=== PATIENT | female | born 2005 | race Caucasian/White ===

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

== ENCOUNTER 2024-07-07 04:07 | Inpatient (IN) | payer OTHER ==
--- NOTE | 2024-07-07 04:12 | ED ---
Overdose HPI - General Stated Complaint: Overdose Time Seen by Provider: 07/07/24 04:11 Source: RN notes reviewed, old records reviewed Mode of arrival: EMS Limitations: altered mental status, physical limitation - History of Present Illness Initial Comments: This is a 19-year-old female to ER for overdose. Underlying history of seizures unknown overdose suicide attempt. Patient is unable to provide history Patient is brought in by EMS who states patient took overdose on a medication called lacosamide this is a medication that she is on for seizures patient is on multiple seizure medications with long standing history of seizures and ER visits for seizures Patient recently broke up with boyfriend and has been suicidal going to increase counseling for about a month MD Complaint: intentional overdose -: hour(s) Intent: suicide attempt Context: Intentional Overdose: relationship problems Context: Accidental Overdose: wanted to get high Associated Symptoms: depression Treatments Prior to Arrival: none - Related Data Home Medications Medication Instructions Recorded Confirmed Lacosamide 200 mg PO BID 05/19/23 07/07/24 Cenobamate [Xcopri] See Taper PO DIRECTED 07/07/24 07/07/24 diazePAM [Valtoco] 10 mg NASAL DIRECTED PRN 07/07/24 07/07/24 Allergies Allergy/AdvReac Type Severity Reaction Status Date / Time cat dander Allergy Rash/Hives Verified 07/07/24 07:54 chocolate flavor Allergy Rash/Hives Verified 07/07/24 07:54 dog dander Allergy Rash/Hives Verified 07/07/24 07:54 Melon Allergy Rash/Hives Verified 07/07/24 07:54 dust Allergy Anaphylaxis Uncoded 07/07/24 07:54 Review of Systems ROS Statement: Those systems with pertinent positive or pertinent negative responses have been documented in the HPI. ROS Other: All systems not noted in ROS Statement are negative. Past Medical History Past Medical History: Seizure Disorder Additional Past Medical History / Comment(s): Seizures History of Any Multi-Drug Resistant Organisms: None Reported Past Surgical History: No Surgical Hx Reported Past Anesthesia/Blood Transfusion Reactions: No Reported Reaction Past Psychological History: No Psychological Hx Reported Smoking Status: Current every day smoker Past Alcohol Use History: None Reported Past Drug Use History: None Reported - Past Family History Mother Additional Family Medical History / Comment(s): no health issues Father Additional Family Medical History / Comment(s): no health issues. General Exam - General Exam Comments Initial Comments: Decerebate Posturing, Contracted Limitations: altered mental status, physical limitation General appearance: alert, lethargic, obtunded, in distress Head exam: Present: atraumatic, normocephalic, normal inspection Eye exam: Present: normal appearance, PERRL, EOMI. Absent: scleral icterus, conjunctival injection, periorbital swelling ENT exam: Present: normal exam, mucous membranes moist Neck exam: Present: normal inspection. Absent: tenderness, meningismus, lymphadenopathy Respiratory exam: Present: normal lung sounds bilaterally. Absent: respiratory distress, wheezes, rales, rhonchi, stridor Cardiovascular Exam: Present: regular rate, normal rhythm, normal heart sounds. Absent: systolic murmur, diastolic murmur, rubs, gallop, clicks GI/Abdominal exam: Present: soft, normal bowel sounds. Absent: distended, tenderness, guarding, rebound, rigid Extremities exam: Present: normal inspection, full ROM, normal capillary refill. Absent: tenderness, pedal edema, joint swelling, calf tenderness Back exam: Present: normal inspection Neurological exam: Present: alert, oriented X3, CN II-XII intact Psychiatric exam: Present: normal affect, normal mood Skin exam: Present: warm, dry, intact, normal color. Absent: rash Course Vital Signs 07/07/24 07/07/24 07/07/24 04:09 05:38 07:25 Temperature Pulse Rate 76 83 Respiratory 30 H 16 14 Rate Blood Pressure 105/83 122/83 114/79 O2 Sat by Pulse 99 99 99 Oximetry 07/07/24 07/07/24 07/07/24 08:42 09:39 11:17 Temperature Pulse Rate 90 79 89 Respiratory 16 14 18 Rate Blood Pressure 111/78 130/45 128/92 O2 Sat by Pulse 98 98 98 Oximetry 07/07/24 07/07/24 07/07/24 11:41 12:48 13:00 Temperature Pulse Rate 84 80 82 Respiratory 14 16 18 Rate Blood Pressure 120/74 108/71 108/71 O2 Sat by Pulse 98 98 99 Oximetry 07/07/24 07/07/24 07/07/24 14:00 15:00 16:26 Temperature 97.3 F L Pulse Rate 87 78 92 Respiratory 20 16 20 Rate Blood Pressure 117/86 131/90 111/76 O2 Sat by Pulse 96 96 98 Oximetry 07/07/24 07/07/24 07/07/24 17:21 17:30 18:22 Temperature 97.3 F L Pulse Rate 78 80 75 Respiratory 16 20 21 Rate Blood Pressure 101/65 101/65 127/81 O2 Sat by Pulse 98 98 99 Oximetry - Reevaluation(s) Reevaluation #1: 07/07/24 04:12 Records reviewed Prior ER visits include recurrent seizures Reevaluation #2: 07/07/24 05:39 Patient informed of results and questions answered Reevaluation #3: 07/07/24 05:39 Patient does not not appear to be having seizure activity Patient is not significant proving with normal mental status standpoint Reevaluation #4: Was pt. sent in by a medical professional or institution (BLANCA Burciaga, FOUNDRY PROCESS ENGINEER, urgent care, hospital, or retirement...) When possible be specific @ -no Did you speak to anyone other than the patient for history (EMS, parent, family, police, friend...)? What history was obtained from this source @ -no Did you review nursing and triage notes (agree or disagree)? Why? @ -agree Are old charts reviewed (outside hosp., previous admission, EMS record, old EKG, old radiological studies, urgent care reports/EKG's, retirement records)? Report findings @ -yes Differential Diagnosis (chest pain, altered mental status, abdominal pain women, abdominal pain men, vaginal bleeding, weakness, fever, dyspnea, syncope, headache, dizziness, GI bleed, back pain, seizure, CVA, palpatations, mental health, musculoskeletal)? @ -prior EKG interpreted by me (3pts min.). @ -yes X-rays interpreted by me (1pt min.). @ -yes negative for acute disease CT interpreted by me (1pt min.). @ -no U/S interpreted by me (1pt. min.). @ -no What testing was considered but not performed or refused? (CT, X-rays, U/S, labs)? Why? @ -none What meds were considered but not given or refused? Why? @ -none Did you discuss the management of the patient with other professionals (professionals i.e. BLANCA Burciaga, FOUNDRY PROCESS ENGINEER, lab, RT, psych nurse, vp digital marketing social media and crm, continuous mining machine company miner, teacher, rating officer, mental health case manager)? Give summary @ -no Was smoking cessation discussed for >3mins.? @ -no Was critical care preformed (if so, how long)? @ -no Were there social determinants of health that impacted care today? How? (Homelessness, low income, unemployed, alcoholism, drug addiction, transportation, low edu. Level, literacy, decrease access to med. care, halfway, rehab)? @ -none Was there de-escalation of care discussed even if they declined (Discuss DNR or withdrawal of care, Hospice)? DNR status @ -no What co-morbidities impacted this encounter? (DM, HTN, Smoking, COPD, CAD, Cancer, CVA, ARF, Chemo, Hep., AIDS, mental health diagnosis, sleep apnea, morbid obesity)? @ -none Was patient admitted / discharged? Hospital course, mention meds given and route, prescriptions, significant lab abnormalities, going to OR and other pertinent info. @ - Undiagnosed new problem with uncertain prognosis? @ -no Drug Therapy requiring intensive monitoring for toxicity (Heparin, Nitro, Insulin, Cardizem)? @ -no Were any procedures done? @ -no Diagnosis/symptom? @ - Acute, or Chronic, or Acute on Chronic? @ -Acute Uncomplicated (without systemic symptoms) or Complicated (systemic symptoms)? @ -Complicated Side effects of treatment? @ -no Exacerbation, Progression, or Severe Exacerbation? @ -exacerbation Poses a threat to life or bodily function? How? (Chest pain, [place], [place], pneumonia, PE, COPD, DKA, ARF, appy, cholecystitis, CVA, Diverticulitis, Homicidal, Suicidal, threat to staff... and all critical care pts) @ -yes Reevaluation #5: Differential Altered Mental Status: Hypoglycemia, DKA, hypercapnia, ETOH, overdose, CO poisoning, trauma, myxedema coma, HTN encephalopathy, infection, encephalitis, psychosis, intercranial hemorrhage, hepatic encephalopathy, meningitis, CVA, this is not meant to be an all-inclusive list Differential Seizure: Recurrent seizure disorder, febrile seizure, alcohol withdrawal, stimulants, meningitis, encephalitis, intercranial hemorrhage, intracranial tumor, stroke, eclampsia, thyrotoxicosis, hypocalcemia, hyponatremia, hypernatremia, hypomagnesemia, psychogenic, this is not meant to be an all-inclusive list. - Consultations Consultation #1: Spoke with poison control, recommendations made Consultation #2: Spoke with sound who agrees to admit this patient Consultation #3: Spoke with ICU who agrees to accept the patient to the ICU Medical Decision Making - Medical Decision Making 19 Female to the ER for evaluation of overdose patient presents as lacosamide overdose today and suicide attempts. Patient remains with significant neurological complaints but no apparent seizures here in the emergency departm ent. Patient is protecting her airway, there was concern by poison control for QRS prolongation that does not seem to be the case. Patient will be admitted to the ICU for monitoring of overdose - Lab Data Result diagrams: 07/07/24 04:19 07/07/24 04:19 Lab Results 07/07/24 07/07/24 07/07/24 Range/Units 04:15 04:19 04:19 WBC 8.7 (4.0-11.0) k/uL RBC 4.41 (3.80-5.40) m/uL Hgb 13.3 (11.4-16.0) gm/dL Hct 42.3 (34.0-46.0) % MCV 96.1 (80.0-100.0) fL MCH 30.1 (25.0-35.0) pg MCHC 31.4 (31.0-37.0) g/dL RDW 12.3 (11.5-15.5) % Plt Count 273 (150-450) k/uL MPV 8.9 Neutrophils % 46 % Lymphocytes % 42 % Monocytes % 5 % Eosinophils % 4 % Basophils % 0 % Neutrophils # 4.0 (1.3-7.7) k/uL Lymphocytes # 3.6 (1.0-4.8) k/uL Monocytes # 0.5 (0-1.0) k/uL Eosinophils # 0.3 (0-0.7) k/uL Basophils # 0.0 (0-0.2) k/uL PT (10.0-12.5) sec INR (<1.2) Sodium 136 L (137-145) mmol/L Potassium 3.6 (3.5-5.1) mmol/L Chloride 108 H (98-107) mmol/L Carbon Dioxide 20 L (22-30) mmol/L Anion Gap 8 mmol/L BUN 17 (7-17) mg/dL Creatinine 0.68 (0.52-1.04) mg/dL Est GFR (CKD-EPI)AfAm >90 (>60 ml/min/1.73 sqM) Est GFR (CKD-EPI)NonAf >90 (>60 ml/min/1.73 sqM) Glucose 186 H (74-99) mg/dL POC Glucose (mg/dL) 196 H (70-110) mg/dL POC Glu Finisher Hand ID Gregory Mcdermott Calcium 8.8 (8.4-10.2) mg/dL Magnesium (1.6-2.3) mg/dL Total Bilirubin 1.0 (0.2-1.3) mg/dL AST 21 (14-36) U/L ALT 10 (4-34) U/L Alkaline Phosphatase 60 (38-126) U/L Troponin I (0.000-0.034) ng/mL Total Protein 6.5 (6.3-8.2) g/dL Albumin 4.2 (3.5-5.0) g/dL Lipase 41 (23-300) U/L Urine Color Urine Appearance (Clear) Urine pH (5.0-8.0) Ur Specific [place] (1.001-1.035) Urine Protein (Negative) Urine Glucose (UA) (Negative) Urine Ketones (Negative) Urine Blood (Negative) Urine Nitrite (Negative) Urine Bilirubin (Negative) Urine Urobilinogen (<2.0) mg/dL Ur Leukocyte Esterase (Negative) Urine RBC (0-5) /hpf Urine WBC (0-5) /hpf Ur Squamous Epith Cells (0-4) /hpf Urine Mucus (None) /hpf Urine HCG, Qual (Not Detectd) Salicylates <1.0 mg/dL Urine Opiates Screen (NotDetected) Ur Oxycodone Screen (NotDetected) Urine Methadone Screen (NotDetected) Acetaminophen <10.0 ug/mL Ur Barbiturates Screen (NotDetected) U Tricyclic Antidepress (NotDetected) Ur Phencyclidine Scrn (NotDetected) Ur Amphetamines Screen (NotDetected) U Methamphetamines Scrn (NotDetected) U Benzodiazepines Scrn (NotDetected) Urine Cocaine Screen (NotDetected) U Marijuana (THC) Screen (NotDetected) Serum Alcohol <10 mg/dL 07/07/24 07/07/24 07/07/24 Range/Units 04:19 04:20 04:20 WBC (4.0-11.0) k/uL RBC (3.80-5.40) m/uL Hgb (11.4-16.0) gm/dL Hct (34.0-46.0) % MCV (80.0-100.0) fL MCH (25.0-35.0) pg MCHC (31.0-37.0) g/dL RDW (11.5-15.5) % Plt Count (150-450) k/uL MPV Neutrophils % % Lymphocytes % % Monocytes % % Eosinophils % % Basophils % % Neutrophils # (1.3-7.7) k/uL Lymphocytes # (1.0-4.8) k/uL Monocytes # (0-1.0) k/uL Eosinophils # (0-0.7) k/uL Basophils # (0-0.2) k/uL PT 12.7 H (10.0-12.5) sec INR 1.2 H (<1.2) Sodium (137-145) mmol/L Potassium (3.5-5.1) mmol/L Chloride (98-107) mmol/L Carbon Dioxide (22-30) mmol/L Anion Gap mmol/L BUN (7-17) mg/dL Creatinine (0.52-1.04) mg/dL Est GFR (CKD-EPI)AfAm (>60 ml/min/1.73 sqM) Est GFR (CKD-EPI)NonAf (>60 ml/min/1.73 sqM) Glucose (74-99) mg/dL POC Glucose (mg/dL) (70-110) mg/dL POC Glu Finisher Hand ID Calcium (8.4-10.2) mg/dL Magnesium 2.1 (1.6-2.3) mg/dL Total Bilirubin (0.2-1.3) mg/dL AST (14-36) U/L ALT (4-34) U/L Alkaline Phosphatase (38-126) U/L Troponin I <0.012 (0.000-0.034) ng/mL Total Protein (6.3-8.2) g/dL Albumin (3.5-5.0) g/dL Lipase (23-300) U/L Urine Color Urine Appearance (Clear) Urine pH (5.0-8.0) Ur Specific [place] (1.001-1.035) Urine Protein (Negative) Urine Glucose (UA) (Negative) Urine Ketones (Negative) Urine Blood (Negative) Urine Nitrite (Negative) Urine Bilirubin (Negative) Urine Urobilinogen (<2.0) mg/dL Ur Leukocyte Esterase (Negative) Urine RBC (0-5) /hpf Urine WBC (0-5) /hpf Ur Squamous Epith Cells (0-4) /hpf Urine Mucus (None) /hpf Urine HCG, Qual (Not Detectd) Salicylates mg/dL Urine Opiates Screen (NotDetected) Ur Oxycodone Screen (NotDetected) Urine Methadone Screen (NotDetected) Acetaminophen ug/mL Ur Barbiturates Screen (NotDetected) U Tricyclic Antidepress (NotDetected) Ur Phencyclidine Scrn (NotDetected) Ur Amphetamines Screen (NotDetected) U Methamphetamines Scrn (NotDetected) U Benzodiazepines Scrn (NotDetected) Urine Cocaine Screen (NotDetected) U Marijuana (THC) Screen (NotDetected) Serum Alcohol mg/dL 07/07/24 07/07/24 07/07/24 Range/Units 04:35 04:35 04:35 WBC (4.0-11.0) k/uL RBC (3.80-5.40) m/uL Hgb (11.4-16.0) gm/dL Hct (34.0-46.0) % MCV (80.0-100.0) fL MCH (25.0-35.0) pg MCHC (31.0-37.0) g/dL RDW (11.5-15.5) % Plt Count (150-450) k/uL MPV Neutrophils % % Lymphocytes % % Monocytes % % Eosinophils % % Basophils % % Neutrophils # (1.3-7.7) k/uL Lymphocytes # (1.0-4.8) k/uL Monocytes # (0-1.0) k/uL Eosinophils # (0-0.7) k/uL Basophils # (0-0.2) k/uL PT (10.0-12.5) sec INR (<1.2) Sodium (137-145) mmol/L Potassium (3.5-5.1) mmol/L Chloride (98-107) mmol/L Carbon Dioxide (22-30) mmol/L Anion Gap mmol/L BUN (7-17) mg/dL Creatinine (0.52-1.04) mg/dL Est GFR (CKD-EPI)AfAm (>60 ml/min/1.73 sqM) Est GFR (CKD-EPI)NonAf (>60 ml/min/1.73 sqM) Glucose (74-99) mg/dL POC Glucose (mg/dL) (70-110) mg/dL POC Glu Finisher Hand ID Calcium (8.4-10.2) mg/dL Magnesium (1.6-2.3) mg/dL Total Bilirubin (0.2-1.3) mg/dL AST (14-36) U/L ALT (4-34) U/L Alkaline Phosphatase (38-126) U/L Troponin I (0.000-0.034) ng/mL Total Protein (6.3-8.2) g/dL Albumin (3.5-5.0) g/dL Lipase (23-300) U/L Urine Color Yellow Urine Appearance Clear (Clear) Urine pH 6.5 (5.0-8.0) Ur Specific [place] 1.033 (1.001-1.035) Urine Protein 1+ H (Negative) Urine Glucose (UA) Negative (Negative) Urine Ketones Trace H (Negative) Urine Blood Negative (Negative) Urine Nitrite Negative (Negative) Urine Bilirubin Negative (Negative) Urine Urobilinogen 2.0 (<2.0) mg/dL Ur Leukocyte Esterase Negative (Negative) Urine RBC <1 (0-5) /hpf Urine WBC 1 (0-5) /hpf Ur Squamous Epith Cells 1 (0-4) /hpf Urine Mucus Many H (None) /hpf Urine HCG, Qual Not Detected (Not Detectd) Salicylates mg/dL Urine Opiates Screen Not Detected (NotDetected) Ur Oxycodone Screen Not Detected (NotDetected) Urine Methadone Screen Not Detected (NotDetected) Acetaminophen ug/mL Ur Barbiturates Screen Not Detected (NotDetected) U Tricyclic Antidepress Not Detected (NotDetected) Ur Phencyclidine Scrn Not Detected (NotDetected) Ur Amphetamines Screen Not Detected (NotDetected) U Methamphetamines Scrn Not Detected (NotDetected) U Benzodiazepines Scrn Detected H (NotDetected) Urine Cocaine Screen Not Detected (NotDetected) U Marijuana (THC) Screen Detected H (NotDetected) Serum Alcohol mg/dL - EKG Data -: EKG Interpreted by Me (EKG is sinus 75 DE 202 QRS 70 QTc 444) Disposition Clinical Impression: Accidental drug overdose Disposition: ADMITTED IP TO THIS HOSP Condition: Fair Is patient prescribed a controlled substance at d/c from ED?: No Time of Disposition: 05:40
[2024-07-07 04:17] LABS: Glucose,Whole Blood 196 mg/dL (70-110)
[2024-07-07] MEDS: SODIUM CHLORIDE 0.9% 1,000 ML IV STA (04:30)
[2024-07-07] MEDS: LORazepam 2 MG/ML INJ IV STA ×2 (04:30→04:58)
[2024-07-07] MEDS: SODIUM CHLORIDE 0.9% 500 ML 500 ML IV STA (04:40)
[2024-07-07 04:59] LABS: Basophils % (A) 0 %; Eosinophils # (A) 0.3 k/uL (0-0.7); Eosinophils % (A) 4 %; HCT 42.3 % (34.0-46.0); HGB 13.3 gm/dL (11.4-16.0); Lymphocytes # (A) 3.6 k/uL (1.0-4.8); Lymphocytes % (A) 42 %; MCH 30.1 pg (25.0-35.0); MCHC 31.4 g/dL (31.0-37.0); MCV 96.1 fL (80.0-100.0); Mean Platelet Volume 8.9; Monocytes # (A) 0.5 k/uL (0-1.0); Monocytes % (A) 5 %; Neutrophils % (A) 46 %; Platelet Count 273 k/uL (150-450); RBC 4.41 m/uL (3.80-5.40); RDW 12.3 % (11.5-15.5); WBC 8.7 k/uL (4.0-11.0)
[2024-07-07 05:08] LABS: ALT 10 U/L (4-34); AST 21 U/L (14-36); Acetaminophen <10.0 ug/mL; African American GFR (CKD) >90 (>60 ml/min/1.73 sqM); Albumin 4.2 g/dL (3.5-5.0); Alcohol <10 mg/dL; Alkaline Phosphatase 60 U/L (38-126); Anion Gap 8 mmol/L; Blood Urea Nitrogen 17 mg/dL (7-17); Calcium 8.8 mg/dL (8.4-10.2); Carbon Dioxide 20 mmol/L (22-30); Chloride 108 mmol/L (98-107); Glucose 186 mg/dL (74-99); Lipase 41 U/L (23-300); Non-African American GFR(CKD) >90 (>60 ml/min/1.73 sqM); Potassium 3.6 mmol/L (3.5-5.1); Salicylate <1.0 mg/dL; Sodium 136 mmol/L (137-145); Total Protein 6.5 g/dL (6.3-8.2)
[2024-07-07 05:22] LABS: Appearance,Urine Clear (Clear); Bilirubin,Urine Negative (Negative); Blood,Urine Negative (Negative); Color,Urine Yellow; Glucose,Urine (UA) Negative (Negative); Ketones,Urine Trace (Negative); Leukocyte Esterase,Urine Negative (Negative); Mucus,Urine Many /hpf; Nitrite,Urine Negative (Negative); PH, Urine 6.5 (5.0-8.0); Protein,Urine 1+ (Negative); RBC,Urine <1 /hpf (0-5); Specific Gravity,Urine 1.033 (1.001-1.035); Squamous Epithelial Cell,Urine 1 /hpf (0-4); WBC,Urine 1 /hpf (0-5)
[2024-07-07 05:25] LABS: INR 1.2 (<1.2); Prothrombin Time 12.7 sec (10.0-12.5)
[2024-07-07] MEDS ORDERED: NALOXONE 0.4 MG/ML 1 ML VIAL IV PRN (05:35)
[2024-07-07 06:16] LABS: Amphetamine Screen,Urine Not Detected (NotDetected); Barbiturate Screen,Urine Not Detected (NotDetected); Benzodiazepines Screen,Urine Detected (NotDetected); Cocaine Screen,Urine Not Detected (NotDetected); Methadone Screen, Urine Not Detected (NotDetected); Opiate Screen,Urine Not Detected (NotDetected); Oxycodone Screen, Urine Not Detected (NotDetected); Phencyclidine Screen,Urine Not Detected (NotDetected); Tricyclic Antidepressant,Urine Not Detected (NotDetected); Urn Cannabinoid Scrn Detected (NotDetected)
[2024-07-07] MEDS: DEXTROSE 5%-0.45% NACL 1,000 ML IV SCH (07:06)
[2024-07-07] MEDS: PANTOPRAZOLE 40 MG/10 ML VIAL IV SCH (08:47)
[2024-07-07 08:52] LABS: ABG Base Excess -2.8 mmol/L; ABG HCO3 23 mmol/L (21-25); ABG Oxygen Saturation 99.1 % (94-97); ABG PCO2 43 mmHg (35-45); ABG PH 7.34 (7.35-7.45); ABG PO2 131 mmHg (83-108); ABG TCO2 24 mmol/L (19-24); Allen Test Performed? Yes
[2024-07-07] MEDS: LORazepam 2 MG/ML INJ IV PRN (11:05)
[2024-07-07] MEDS: MIDAZOLAM 2 MG/2 ML VIAL IV ONE ×2 (11:14)
[2024-07-07] MEDS: levETIRAcetam IV 500 MG/5 ML VIAL IVP STA (11:36)
--- NOTE | 2024-07-07 12:10 | P.CNPUL ---
History of Present Illness Consult date: 07/07/24 Requesting physician: Yun Powell Reason for consult: other (Critical care management) Chief complaint: Intentional drug overdose History of present illness: This is a 19-year-old female patient with a known history of seizure disorder that started back in May 2019. She had been maintained on lancosamide. She recently had a break-up with her boyfriend and was suicidal and receiving counseling for about 1 month. She was brought into the emergency room early this morning after a suspected overdose. She was found obtunded. Control was contacted. QRS and breathing difficulties were 2 things of concern. EKG shows a QRS of 90 ms. He does remain obtunded while seen in consultation in the emergency department. She is maintaining O2 saturations in the 90s air. She has been afebrile. Hemodynamically stable. Arterial blood gases were obtained and revealed a PaO2 of 131, pCO2 43 and a pH of 7.34. White count 8.7. Hemoglobin 13.3. Platelets 273. INR 1.2. Sodium 136. Potassium 3.6. Bicarb 20. BUN 817. Creatinine 0.68. Glucose 186. Troponin negative x 1. Creatin ine kinase 86. Urinalysis clean. Urine drug screen positive for benzodiazepines and marijuana. Her family is at the bedside. Review of Systems ROS unobtainable: due to mental status Past Medical History Past Medical History: Seizure Disorder Additional Past Medical History / Comment(s): Seizures History of Any Multi-Drug Resistant Organisms: None Reported Past Surgical History: No Surgical Hx Reported Past Anesthesia/Blood Transfusion Reactions: No Reported Reaction Past Psychological History: No Psychological Hx Reported Smoking Status: Current every day smoker Past Alcohol Use History: None Reported Past Drug Use History: None Reported Medications and Allergies Home Medications Medication Instructions Recorded Confirmed Type Lacosamide 200 mg PO BID 05/19/23 07/07/24 History Cenobamate [Xcopri] See Taper PO DIRECTED 07/07/24 07/07/24 History diazePAM [Valtoco] 10 mg NASAL DIRECTED PRN 07/07/24 07/07/24 History Allergies Allergy/AdvReac Type Severity Reaction Status Date / Time cat dander Allergy Rash/Hives Verified 07/07/24 07:54 chocolate flavor Allergy Rash/Hives Verified 07/07/24 07:54 dog dander Allergy Rash/Hives Verified 07/07/24 07:54 Melon Allergy Rash/Hives Verified 07/07/24 07:54 dust Allergy Anaphylaxis Uncoded 07/07/24 07:54 Physical Exam Osteopathic Statement: *. No significant issues noted on an osteopathic structural exam other than those noted in the History and Physical/Consult. Vitals: Vital Signs Pulse Resp BP Pulse Ox 07/07/24 11:41 84 14 120/74 98 07/07/24 11:17 89 18 128/92 98 07/07/24 09:39 79 14 130/45 98 07/07/24 08:42 90 16 111/78 98 07/07/24 07:25 83 14 114/79 99 07/07/24 05:38 16 122/83 99 07/07/24 04:09 76 30 H 105/83 99 Intake and Output 07/06/24 07/07/24 07/07/24 22:59 06:59 14:59 Other: Weight 45.359 kg GENERAL EXAM: Obtunded 19-year-old female, on room air, in no apparent distress. HEAD: Normocephalic. EYES: Normal reaction of pupils, equal size. NOSE: Clear with pink turbinates. THROAT: No erythema or exudates. NECK: No masses, no JVD. CHEST: No chest wall deformity. LUNGS: Equal air entry with no crackles, wheeze, rhonchi or dullness. CVS: S1 and S2 normal with no audible murmur, regular rhythm. ABDOMEN: No hepatosplenomegaly, normal bowel sounds, no guarding or rigidity. SPINE: No scoliosis or deformity SKIN: No rashes CENTRAL NERVOUS SYSTEM: Obtunded, tone is normal in all 4 extremities. EXTREMITIES: There is no peripheral edema. No clubbing, no cyanosis. Peripheral pulses are intact. Results - Laboratory Findings CBC and BMP: 07/07/24 04:19 07/07/24 04:19 ABG ABG pH 7.34 (7.35-7.45) L 07/07/24 08:48 ABG pCO2 43 mmHg (35-45) 07/07/24 08:48 ABG pO2 131 mmHg (83-108) H 07/07/24 08:48 ABG O2 Saturation 99.1 % (94-97) H 07/07/24 08:48 PT/INR, D-dimer PT 12.7 sec (10.0-12.5) H 07/07/24 04:20 INR 1.2 (<1.2) H 07/07/24 04:20 Abnormal lab findings: Abnormal Labs 07/07/24 07/07/24 07/07/24 04:15 04:19 04:20 PT 12.7 H INR 1.2 H ABG pH ABG pO2 ABG O2 Saturation Sodium 136 L Chloride 108 H Carbon Dioxide 20 L Glucose 186 H POC Glucose (mg/dL) 196 H Urine Protein Urine Ketones Urine Mucus U Benzodiazepines Scrn U Marijuana (THC) Screen 07/07/24 07/07/24 07/07/24 04:35 04:35 08:48 PT INR ABG pH 7.34 L ABG pO2 131 H ABG O2 Saturation 99.1 H Sodium Chloride Carbon Dioxide Glucose POC Glucose (mg/dL) Urine Protein 1+ H Urine Ketones Trace H Urine Mucus Many H U Benzodiazepines Scrn Detected H U Marijuana (THC) Screen Detected H Assessment and Plan Assessment: Altered mental status secondary to suspected intentional drug overdose with lacosamide History of seizure disorders maintained on lacosamide and Xcopri History of vaping Marijuana use Recent break-up with her boyfriend and was receiving counseling Plan: The patient was seen and evaluated Labs and medications reviewed Currently stable and on room air Arterial blood gases reviewed EKG reviewed To watch for widening QRS Will monitor closely in the intensive care unit We will continue to follow and make further recommendations based on her clinical status I have personally seen and examined the patient, performed the documentation and the assessment and plan as written. Number of minutes spent on the visit: 20 Dictation was produced using [employer] dictation software. Please excuse any grammatical, word or spelling errors.
--- NOTE | 2024-07-07 14:15 | P.HPIM ---
History of Present Illness H&P Date: 07/07/24 Chief Complaint: overdose This is a 19-year-old female with a past medical history of seizure disorder versus pseudoseizures, prescribed epileptic medications at home, who presents to the emergency department for concerns intentional overdose of her Vimpat. It is unclear because she took. Patient lives with her mother but currently at bedside her grandmother is present as well as her father and brother. Her brother states that she has questionable seizures, possibly diagnosed with pseudoseizures in the past. Majority of her medical record is that you have them and has followed up with him in the past. Currently neurologist with your mom as well. Family states that she had multiple bottles of Vimpat at home, it is unclear if she takes them regularly as scheduled. Patient herself is unable to provide any information as she is not arousable at this time. Family states that she recently broke up with her boyfriend which escalated things and lead her to overdose. Poison control was contacted by ER staff, advised to monitor QTc, hold any QTc prolonging agents and monitor CPK levels. Blood gas was obtained in the ER, reviewed, normal at this time. Patient is on room air, nontachycardic airway. 2 hours after seeing the patient, received message from nursing staff stating that she is having seizure-like activities. Keppra loaded dose was ordered after Versed 2 mg was given which abated the seizures. Patient brought in for further workup and evaluation. Review of Systems ROS unobtainable: due to mental status Past Medical History Past Medical History: Seizure Disorder Additional Past Medical History / Comment(s): Seizures History of Any Multi-Drug Resistant Organisms: None Reported Past Surgical History: No Surgical Hx Reported Past Anesthesia/Blood Transfusion Reactions: No Reported Reaction Past Psychological History: No Psychological Hx Reported Smoking Status: Current every day smoker Past Alcohol Use History: None Reported Past Drug Use History: None Reported Medications and Allergies Home Medications Medication Instructions Recorded Confirmed Type Lacosamide 200 mg PO BID 05/19/23 07/07/24 History Cenobamate [Xcopri] See Taper PO DIRECTED 07/07/24 07/07/24 History diazePAM [Valtoco] 10 mg NASAL DIRECTED PRN 07/07/24 07/07/24 History Allergies Allergy/AdvReac Type Severity Reaction Status Date / Time cat dander Allergy Rash/Hives Verified 07/07/24 07:54 chocolate flavor Allergy Rash/Hives Verified 07/07/24 07:54 dog dander Allergy Rash/Hives Verified 07/07/24 07:54 Melon Allergy Rash/Hives Verified 07/07/24 07:54 dust Allergy Anaphylaxis Uncoded 07/07/24 07:54 Physical Exam Vitals: Vital Signs Pulse Resp BP Pulse Ox 07/07/24 12:48 80 16 108/71 98 07/07/24 11:41 84 14 120/74 98 07/07/24 11:17 89 18 128/92 98 07/07/24 09:39 79 14 130/45 98 07/07/24 08:42 90 16 111/78 98 07/07/24 07:25 83 14 114/79 99 07/07/24 05:38 16 122/83 99 07/07/24 04:09 76 30 H 105/83 99 Intake and Output 07/06/24 07/07/24 07/07/24 22:59 06:59 14:59 Other: Weight 45.359 kg - Constitutional General appearance: average body habitus, no acute distress - EENT Ears: bilateral: normal - Respiratory Respiratory: negative: diminished, dullness - Cardiovascular Rhythm: regular Heart sounds: normal: S1, S2 - Neurologic unable to participate due to mentation Results CBC & Chem 7: 07/07/24 04:19 07/07/24 04:19 Labs: Abnormal Lab Results - Last 24 Hours (Table) 07/07/24 07/07/24 07/07/24 Range/Units 04:15 04:19 04:20 PT 12.7 H (10.0-12.5) sec INR 1.2 H (<1.2) ABG pH (7.35-7.45) ABG pO2 (83-108) mmHg ABG O2 Saturation (94-97) % Sodium 136 L (137-145) mmol/L Chloride 108 H (98-107) mmol/L Carbon Dioxide 20 L (22-30) mmol/L Glucose 186 H (74-99) mg/dL POC Glucose (mg/dL) 196 H (70-110) mg/dL Urine Protein (Negative) Urine Ketones (Negative) Urine Mucus (None) /hpf U Benzodiazepines Scrn (NotDetected) U Marijuana (THC) Screen (NotDetected) 07/07/24 07/07/24 07/07/24 Range/Units 04:35 04:35 08:48 PT (10.0-12.5) sec INR (<1.2) ABG pH 7.34 L (7.35-7.45) ABG pO2 131 H (83-108) mmHg ABG O2 Saturation 99.1 H (94-97) % Sodium (137-145) mmol/L Chloride (98-107) mmol/L Carbon Dioxide (22-30) mmol/L Glucose (74-99) mg/dL POC Glucose (mg/dL) (70-110) mg/dL Urine Protein 1+ H (Negative) Urine Ketones Trace H (Negative) Urine Mucus Many H (None) /hpf U Benzodiazepines Scrn Detected H (NotDetected) U Marijuana (THC) Screen Detected H (NotDetected) Assessment and Plan Assessment: Intentional overdose of Vimpat History of seizure disorder versus pseudoseizures Plan: Intentional overdose with Vimpat Attempted Suicide Hypovolemic hyponatremia Seizure disorder vs pseudoseizures Metabolic alkalosis Cannabinoid Use Disorder Poison control was contacted At this time recommending close cardiac monitoring and serial CPK Will need serial EKGs to monitor QTc if telemetry monitoring did not have QTc suture Consult to neurology for their input Seizure precautions Suicide precautions Loaded patient with 1000 mg of Keppra Continuing 500 mg twice daily of Keppra Continue to hold home Vimpat CPK level is normal Lorazepam for breakthrough seizures as well as agitation/anxiety DVT prophylaxis with subcu heparin. He had consulted pulmonology, reviewed the recommendations Keep Mag > 4 EEG ordered Prolactin ordered
[2024-07-07] MEDS ORDERED: OLANZapine 5 MG TAB PO PRN (14:27)
--- NOTE | 2024-07-07 14:44 | P.CN ---
Psychiatric Consult - . Consult date: 07/07/24 Consult:: 07/07/24 14:03 IDENTIFYING DATA: This patient is a 19-year-old female, , single lives with her mother in a house, works at an [employer] store REASON FOR REFERRAL: Psychiatry was consulted for suicide attempt overdose HISTORY OF PRESENT ILLNESS: The patient presented to the hospital initially on 07/07, after a overdose suicide attempt, apparently patient has a history of seizures. Patient was unable to give history due to her mental status. Patient apparently overdosed on lacosamide. According to ER report patient apparently had a break-up with her boyfriend and then overdosed, was found by boyfriend and the mother, brought into the hospital, currently awaiting ICU bed. Patient was seen today laying in bed, she was turned to her side in a position, intermittently opening and closing her eyes and moving spontaneously in her bed. She was surrounded by her friends and family at the bedside. Lobsterman attempted to speak with patient, she was not able to respond verbally or follow any directions with her hands. Patient's friends and family state that patient had a recent argument with her ex boyfriend and overdosed on her seizure medications. Patient apparently had texted her best friend a long message stating she was sorry for several things that had occurred, wishing her farewell. She also had been posting on [employer] cryptic messages about her feeling depressed and people letting her down. Patient's father claims that she has been having several issues with her mother, states that her mother lives with her and she has been trying to get her mother out of the house and find a different place to live. Patient was unable to answer any questions at this time, rest of the past psychiatric and social history were given by the family. PAST PSYCHIATRIC HISTORY: Patient has a a history of seizures apparently. Patient is currently on antiepileptic medications no psychiatric medications. Patient has no previous psychiatric hospitalizations. Patient has a therapist that she is following up with. No known previous suicide attempts Past Medical History: Seizure Disorder Additional Past Medical History / Comment(s): Seizures History of Any Multi-Drug Resistant Organisms: None Reported Past Surgical History: No Surgical Hx Reported Past Anesthesia/Blood Transfusion Reactions: No Reported Reaction Past Psychological History: No Psychological Hx Reported Smoking Status: Current every day smoker Past Alcohol Use History: None Reported Past Drug Use History: None Reported ALLERGIES: as per EMR. CHEMICAL DEPENDENCY HISTORY: Family claims that patient is not using any recreational drugs FAMILY PSYCHIATRIC/SUBSTANCE USE HISTORY: Denies SOCIAL HISTORY: Patient was born and raised in [facility] [place]. Completed high school. 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 Denies any legal history. MENTAL STATUS EXAM: General Appearance: Patient appears to be thin, stated age is somnolent, confused. Patient appears to have fair hygiene and grooming wearing hospital gown with poor eye contact. Behavior: Patient is lying in bed, restless, confused Speech: Unable to assess Mood/Affect: Able to assess Suicidality/Homicidality: Unable to assess Perceptions: Unable to assess Though content/process: Unable to assess Memory and concentration: Patient is not following any commands, not responding to her name Judgment and insight: Poor IMPRESSIONS: Delirium likely secondary to overdose of medications and toxic metabolic causes Suicide attempt by overdose of seizure medications Depressive disorder unspecified PLAN: -At this time patient DOES meet criteria for inpatient psychiatric admission once she is adequately medically cleared. -Delirium precautions recommended with patient including - avoiding use of narcotics and STORE MANAGER sedatives, limit anticholinergic medications when possible, frequent re-orientation, minimize use of restraints, open window shades during the day and close them at night -Would recommend the following medication changes/additions: Please attempt to limit the use of benzodiazepines as this will cause patient to be more confused and delirious. Changed as needed medications to Zyprexa for agitation. Your medical management for medical conditions. Please follow poison control recommendations -Spoke with nurse and family about having mother completed a petition to document further information for future psychiatric care -Cannot leave AMA at this time. Patient will need a petition and certification if attempting to leave AMA. -Communicated plan to patient's nurse and patient's family/friends -Will continue to follow along as needed -Please contact with any questions. 07/07/24 14:29 07/07/24 14:33
[2024-07-07] MEDS: OLANZapine 10 MG VIAL IM PRN (16:28)
[2024-07-07 18:26] LABS: Glucose,Whole Blood 96 mg/dL (70-110)
[2024-07-07] MEDS ORDERED: LORazepam 2 MG/ML INJ IV PRN (19:54)
[2024-07-07] MEDS: levETIRAcetam IV 500 MG/5 ML VIAL IVP SCH (21:13)
--- NOTE | 2024-07-07 22:03 | EEG ---
ELECTROENCEPHALOGRAM REPORT PREAMBLE: This is a 19-year-old female with history of seizure disorder, came to the hospital because of an overdose of lacosamide. Uncertain how many the patient took. This morning family reported "seizure like activity" and was given Ativan 1 mg and Versed 2 mg. CURRENT MEDICATIONS: 1. Versed. 2. Protonix. EEG FINDINGS: This is a 21-channel digital EEG recorded with video component, utilizing 10/20 international system with referential and bipolar montages. The recording starts and continues with the patient being asleep with presence of diffuse low to moderate amplitude delta activity with superimposed some sleep spindles and some fast frequency beta activity seen. Background does not seem to be reactive to eye opening or closing. Photic stimulation and hyperventilation were not performed. No focal or generalized epileptiform activity was seen. IMPRESSION: This is probably an abnormal sleep EEG. An awake pattern not seen in the entire study. Underlying at least moderate encephalopathy cannot be ruled out. Clinical correlation and followup EEG recommended, as clinically indicated. No epileptiform activity was seen. MMODL / IJN: [id number] /
[2024-07-08 07:02] LABS: Basophils % (A) 0 %; Eosinophils # (A) 0.1 k/uL (0-0.7); Eosinophils % (A) 1 %; HCT 43.3 % (34.0-46.0); HGB 13.4 gm/dL (11.4-16.0); Hypochromasia Slight; Lymphocytes # (A) 1.4 k/uL (1.0-4.8); Lymphocytes % (A) 22 %; MCH 29.8 pg (25.0-35.0); MCHC 30.9 g/dL (31.0-37.0); MCV 96.5 fL (80.0-100.0); Monocytes # (A) 0.4 k/uL (0-1.0); Monocytes % (A) 6 %; Neutrophils # (A) 4.4 k/uL (1.3-7.7); Neutrophils % (A) 70 %; Platelet Count 187 k/uL (150-450); RBC 4.49 m/uL (3.80-5.40); RDW 12.3 % (11.5-15.5); WBC 6.4 k/uL (4.0-11.0)
[2024-07-08 07:15] LABS: ALT 12 U/L (4-34); AST 22 U/L (14-36); African American GFR (CKD) >90 (>60 ml/min/1.73 sqM); Albumin 4.2 g/dL (3.5-5.0); Alkaline Phosphatase 61 U/L (38-126); Anion Gap 10 mmol/L; Blood Urea Nitrogen 7 mg/dL (7-17); Calcium 9.1 mg/dL (8.4-10.2); Carbon Dioxide 20 mmol/L (22-30); Chloride 108 mmol/L (98-107); Glucose 90 mg/dL (74-99); Non-African American GFR(CKD) >90 (>60 ml/min/1.73 sqM); Phosphorus 3.3 mg/dL (2.5-4.5); Potassium 3.8 mmol/L (3.5-5.1); Sodium 138 mmol/L (137-145); Total Bilirubin 0.8 mg/dL (0.2-1.3); Total Protein 6.5 g/dL (6.3-8.2)
--- NOTE | 2024-07-08 08:14 | P.CNNES ---
History of Present Illness Consult date: 07/07/24 Requesting physician: Fam Castillo Reason for Consult: Seizure history History of Present Illness: Patient is a 19-year-old female with history of seizure disorder, came to the hospital by ambulance performance test architect today at 4:07 AM. Patient's family including her parents, another friend was present by the bedside, who provided with a history. Patient has history of emotional issues, seizure disorder (since 2019), which has been considered between partial seizures with some nonepileptic seizures as well. Patient follows up with Dr. Phipps at [facility]. Patient manages her own medication. She has Vimpat 200 mg twice a day, and Xcopri starter pack. Patient's mother who knows her the most, states that patient is probably not taking Vimpat anymore. She has been started on Xcopri about 3 months ago. It appears that patient is taking the later medication regularly. The starter kit of Xcopri consist of 12.5 mg tablet daily for 2 weeks and then go up to 25 mg daily. Patient's mother states that she has already completed 2 such starter packs received from the pharmacy in the past 2 months. It is uncertain what dose she is taking at this time. Apparently patient had a breakup with her boyfriend and also had some issues with her mother, as the mother live with the patient. Patient's mother reports that patient was having argument with her boyfriend and then she heard a crash. She went in and patient was on the floor of the bathroom. She called EMS. As per EMS flow sheet it was reported that boyfriend was on the location stated there was an argument at the patient stated she was going to overdose on some of her medication. She was found on the bathroom floor a short time later. Upon EMS arrival to the patient, she would open her eyes to painful stimuli and was extremely diaphoretic. Patient had a strong radial pulse rate respiration at 20. The bottle of Vimpat was found near her. Unknown how many pills were taken. bus monitor showed sinus rhythm. 1 mg of Narcan was given and there was no changes in the patient's status. Her blood glucose was 162. Patient's blood pressure was 146/90, pulse rate 80 respiration 20. While in the hospital, patient has been having some seizure-like activity although it's not a clearcut seizure. She would be flailing, gets agitated. She has received Ativan 6 mg before she is postictal versus being sedated from medication. 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 She has no history of substance abuse. Patient has history of depression, anxiety or the last 6-7 years. She follows up with the therapist. Patient has previously tried Lamictal, which produced a rash. She has previously tried Oxtellar XR. She has tried another medication that starts with "D" but not the Depakote. She does not remember the details. She has also been on clobazem in the past. Patient had a neuropsychological testing and prolonged EEG performed in the past at [facility]. Patient's mother states that patient has history of grand mal seizures as well as absence seizures. She usually gets grand mal seizures once a month and the last one she had it was on 04/29/2024 when she had 3 seizures on the same day.Her absence seizures consist of looking to the side, smacking lips and then she on shoulder with the finger. She comes right back after about 20-30 seconds but then she is postictal for another 4 hours. Patient's mother believes that the new medication is helping her, as she has not had any seizure for last over 2 months. Patient's father has mentioned that patient has been noncompliant with the medications off and on. Vital signs on arrival blood pressure 105/83, pulse rate 76. Patient has been afebrile. Blood test shows normal CBC, INR 1.2. Sodium 136 potassium 3.6, normal renal and hepatic panel. Troponin negative. UA negative. Urine drug screen positive for benzodiazepine and marijuana. Blood alcohol level negative. Prolactin 10.2, which is normal for her age. Review of Systems ROS unobtainable: due to mental status Past Medical History Past Medical History: Seizure Disorder Additional Past Medical History / Comment(s): Seizures History of Any Multi-Drug Resistant Organisms: None Reported Past Surgical History: No Surgical Hx Reported Past Anesthesia/Blood Transfusion Reactions: No Reported Reaction Past Psychological History: No Psychological Hx Reported Smoking Status: Current every day smoker Past Alcohol Use History: None Reported Past Drug Use History: None Reported - Past Family History Mother Additional Family Medical History / Comment(s): no health issues Father Additional Family Medical History / Comment(s): no health issues. Medications and Allergies Home Medications Medication Instructions Recorded Confirmed Type Lacosamide 200 mg PO BID 05/19/23 07/07/24 History Cenobamate [Xcopri] See Taper PO DIRECTED 07/07/24 07/07/24 History diazePAM [Valtoco] 10 mg NASAL DIRECTED PRN 07/07/24 07/07/24 History Allergies Allergy/AdvReac Type Severity Reaction Status Date / Time cat dander Allergy Rash/Hives Verified 07/07/24 07:54 chocolate flavor Allergy Rash/Hives Verified 07/07/24 07:54 dog dander Allergy Rash/Hives Verified 07/07/24 07:54 Melon Allergy Rash/Hives Verified 07/07/24 07:54 dust Allergy Anaphylaxis Uncoded 07/07/24 07:54 Physical Examination - Vital Signs Vital Signs: Vital Signs Pulse Resp BP Pulse Ox 07/07/24 12:48 80 16 108/71 98 07/07/24 11:41 84 14 120/74 98 07/07/24 11:17 89 18 128/92 98 07/07/24 09:39 79 14 130/45 98 07/07/24 08:42 90 16 111/78 98 07/07/24 07:25 83 14 114/79 99 07/07/24 05:38 16 122/83 99 07/07/24 04:09 76 30 H 105/83 99 Intake and Output 07/07/24 07/07/24 07/07/24 06:59 14:59 22:59 Other: Weight 45.359 kg Patient is a young female, who is severely encephalopathic, uncertain from postictal effect versus effect from Ativan as she has received total of 6 mg since she arrived to the hospital. Patient is sedated. Speech and language functions cannot be assessed. Other mental functioning cannot be assessed. No obvious seizure-like activity noticed at this time. On alerting the patient, patient became somewhat restless, moving and turning her head [id number]. She was significantly encephalopathic. On cranial nerve examination, pupils are equal, round and reacting to light. Visual fautsin cannot be assessed. No obvious gaze deviation noted. Oculocephalics are present. Face is symmetric. Patient did not protrude her tongue. Other lower cranial nerves cannot be assessed. On muscle strength testing, patient is not following any directions. She did not squeeze hands at all. She is moving her extremities equally to painful stimuli. Deep tendon reflexes are symmetric about 1+ to 2+ and plantars are downgoing. Sensory to touch cannot be assessed. Patient slightly withdraws to painful stimuli equally. Cerebellar function cannot be performed. Tone and bulk of muscles normal. Gait deferred.. On general examination, there is no carotid bruit or murmur, S1-S2 audible. Chest is clear on consultation. Abdomen is soft nontender. No organomegaly, bowel sounds present. Peripheral pulses are present. No peripheral edema. Results - Laboratory Findings CBC and BMP: 07/08/24 06:42 07/08/24 06:42 Abnormal Lab Findings: Abnormal Labs 07/07/24 07/07/24 07/07/24 04:15 04:19 04:20 PT 12.7 H INR 1.2 H ABG pH ABG pO2 ABG O2 Saturation Sodium 136 L Chloride 108 H Carbon Dioxide 20 L Glucose 186 H POC Glucose (mg/dL) 196 H Urine Protein Urine Ketones Urine Mucus U Benzodiazepines Scrn U Marijuana (THC) Screen 07/07/24 07/07/24 07/07/24 04:35 04:35 08:48 PT INR ABG pH 7.34 L ABG pO2 131 H ABG O2 Saturation 99.1 H Sodium Chloride Carbon Dioxide Glucose POC Glucose (mg/dL) Urine Protein 1+ H Urine Ketones Trace H Urine Mucus Many H U Benzodiazepines Scrn Detected H U Marijuana (THC) Screen Detected H Assessment and Plan Assessment: * Altered mental status, possibly postictal and combined effect of Ativan ( received 6 mg in the ER) * Suicide attempt with overdose of seizure medication (Vimpat) * 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 Some possibility of nonepileptic seizures as well. * Anxiety, depression * Marijuana use Plan: * Patient at present is sedated. Patient is being admitted to ICU. * EEG was performed which was abnormal sleep EEG. In awake pattern was not seen in the entire study. Underlying at least moderate encephalopathy cannot be ruled out. Clinical correlation and follow-up EEG recommended as clinically indicated. No epileptiform activity was seen. * Patient takes Xcopri , perhaps at 25 mg daily dose. We'll try to continue this medication. Patient has been given Keppra 1000 mg IV push in the ER and started on 500 mg IV every 12 hours by the ED staff. * Psychiatry has seen the patient who wants to limit benzodiazepine because it can make patient more confused and delirious. Patient started on Zyprexa for agitation. * Patient follows up at [facility] with Dr. Phipps. We will try to contact his office at [phone]. * Seizure precautions * Neurology will follow. Thank you for the consult. Time with Patient: Greater than 30
--- NOTE | 2024-07-08 11:36 | P.PN ---
Subjective Progress Note Date: 07/08/24 This is a 19-year-old female patient with a known history of seizure disorder that started back in May 2019. She had been maintained on lancosamide. She recently had a break-up with her boyfriend and was suicidal and receiving counseling for about 1 month. She was brought into the emergency room early this morning after a suspected overdose. She was found obtunded. Control was contacted. QRS and breathing difficulties were 2 things of concern. EKG shows a QRS of 90 ms. He does remain obtunded while seen in consultation in the emergency department. She is maintaining O2 saturations in the 90s air. She has been afebrile. Hemodynamically stable. Arterial blood gases were obtained and revealed a PaO2 of 131, pCO2 43 and a pH of 7.34. White count 8.7. Hemoglobin 13.3. Platelets 273. INR 1.2. Sodium 136. Potassium 3.6. Bicarb 20. BUN 817. Creatinine 0.68. Glucose 186. Troponin negative x 1. Creatinine kinase 86. Urinalysis clean. Urine drug screen positive for benzodi azepines and marijuana. Her family is at the bedside. The patient is seen today July 08, 2024 in follow-up in the intensive care unit. She is awake and alert and oriented x 3. Denies any shortness of breath cough or congestion no dizziness or lightheadedness. No chest pain or palpitations. Maintaining good O2 saturations in the 90s on room air. No seizure activity. White count 6.4. Hemoglobin 13.4. Platelets 187. Sodium 138. Potassium 3.8. Bicarb 20. BUN 7. Creatinine 0.59. Glucose 90. She is continued on Keppra. EEG revealed no epileptiform activity. Objective - Vital Signs Vital signs: Vital Signs Temp 97.7 F 07/08/24 09:00 Pulse 75 07/08/24 09:00 Resp 12 07/08/24 09:00 BP 124/67 07/08/24 09:00 Pulse Ox 95 07/08/24 09:35 FiO2 Intake & Output 07/07/24 07/08/24 07/08/24 18:59 06:59 18:59 Output Total 0 0 Balance 0 0 Weight 45.359 kg 44.5 kg Output: Urine 0 0 Other: Voiding Method Bedpan Diaper Diaper # Voids 2 - Exam GENERAL EXAM: Alert, alert 19-year-old female, on room air, comfortable in no apparent distress. HEAD: Normocephalic. EYES: Normal reaction of pupils, equal size. NOSE: Clear with pink turbinates. THROAT: No erythema or exudates. NECK: No masses, no JVD. CHEST: No chest wall deformity. LUNGS: Equal air entry with no crackles, wheeze, rhonchi or dullness. CVS: S1 and S2 normal with no audible murmur, regular rhythm. ABDOMEN: No hepatosplenomegaly, normal bowel sounds, no guarding or rigidity. SPINE: No scoliosis or deformity SKIN: No rashes CENTRAL NERVOUS SYSTEM: No focal deficits, tone is normal in all 4 extremities. EXTREMITIES: There is no peripheral edema. No clubbing, no cyanosis. Peripheral pulses are intact. - Labs CBC & Chem 7: 07/08/24 06:42 07/08/24 06:42 Labs: Abnormal Lab Results - Last 24 Hours (Table) 07/08/24 07/08/24 Range/Units 06:42 06:42 MCHC 30.9 L (31.0-37.0) g/dL Chloride 108 H (98-107) mmol/L Carbon Dioxide 20 L (22-30) mmol/L Assessment and Plan Assessment: Altered mental status secondary to suspected intentional drug overdose with lacosamide. Recovered and awake and alert today History of seizure disorders maintained on lacosamide and Xcopri History of vaping Marijuana use Recent break-up with her boyfriend and was receiving counseling Plan: The patient was seen and evaluated Labs and medications reviewed Currently stable and on room air Stable for transfer out of the intensive care unit search planner remains at the bedside Psychiatry recommending inpatient psychiatric treatment I have personally seen and examined the patient, performed the documentation and the assessment and plan as written. Number of minutes spent on the visit: 10 Dictation was produced using [employer] dictation software. Please excuse any grammatical, word or spelling errors.
[2024-07-08] MEDS: NICOTINE 21MG/24HR PATCH TRANSDERM SCH (13:25)
--- NOTE | 2024-07-08 14:05 | P.PN ---
Subjective Subjective Patient seen and examined at bedside Her uncle was at bedside who is a ER physician We went through the assessment and plan and is in agreement with the current plan Plan is for the patient also to be admitted to inpatient psych after she is medically stable History of Present Illness Chief Complaint: overdose This is a 19-year-old female with a past medical history of seizure disorder versus pseudoseizures, prescribed epileptic medications at home, who presents to the emergency department for concerns intentional overdose of her Vimpat. It is unclear because she took. Patient lives with her mother but currently at bedside her grandmother is present as well as her father and brother. Her brother states that she has questionable seizures, possibly diagnosed with pseudoseizures in the past. Majority of her medical record is that you have them and has followed up with him in the past. Currently neurologist with your mom as well. Family states that she had multiple bottles of Vimpat at home, it is unclear if she takes them regularly as scheduled. Patient herself is unable to provide any information as she is not arousable at this time. Family states that she recently broke up with her boyfriend which escalated things and lead her to overdose. Poison control was contacted by ER staff, advised to monitor QTc, hold any QTc prolonging agents and monitor CPK levels. Blood gas was obtained in the ER, reviewed, normal at this time. Patient is on room air, nontachycardic airway. 2 hours after seeing the patient, received message from nursing staff stating that she is having seizure-like activities. Keppra loaded dose was ordered after Versed 2 mg was given which abated the seizures. Patient brought in for further workup and evaluation. Review of Systems ROS unobtainable: due to mental status Past Medical History Past Medical History: Seizure Disorder Additional Past Medical History / Comment(s): Seizures History of Any Multi-Drug Resistant Organisms: None Reported Past Surgical History: No Surgical Hx Reported Past Anesthesia/Blood Transfusion Reactions: No Reported Reaction Past Psychological History: No Psychological Hx Reported Smoking Status: Current every day smoker Past Alcohol Use History: None Reported Past Drug Use History: None Reported Medications and Allergies Home Medications Medication Instructions Recorded Confirmed Type Lacosamide 200 mg PO BID 05/19/23 07/07/24 History Cenobamate [Xcopri] See Taper PO DIRECTED 07/07/24 07/07/24 History diazePAM [Valtoco] 10 mg NASAL DIRECTED PRN 07/07/24 07/07/24 History Allergies Allergy/AdvReac Type Severity Reaction Status Date / Time cat dander Allergy Rash/Hives Verified 07/07/24 07:54 chocolate flavor Allergy Rash/Hives Verified 07/07/24 07:54 dog dander Allergy Rash/Hives Verified 07/07/24 07:54 Melon Allergy Rash/Hives Verified 07/07/24 07:54 dust Allergy Anaphylaxis Uncoded 07/07/24 07:54 Physical Exam Vitals: - Constitutional General appearance: average body habitus, no acute distress - Neurologic Alert and oriented, speaking, appears agitated Assessment and Plan Assessment: Intentional overdose of Vimpat History of seizure disorder versus pseudoseizures Plan: Intentional overdose with Vimpat Attempted Suicide Hypovolemic hyponatremia Seizure disorder vs pseudoseizures Metabolic alkalosis Cannabinoid Use Disorder Poison control was contacted At this time recommending close cardiac monitoring and serial CPK Will need serial EKGs to monitor QTc if telemetry monitoring did not have QTc suture Neurology following, appreciate recommendations Seizure precautions Suicide precautions Loaded patient with 1000 mg of Keppra Continuing 500 mg twice daily of Keppra Continue to hold home Vimpat CPK level is normal Zyprexa for agitations, minimize benzodiazepines DVT prophylaxis with subcu heparin. Pulmonology following, appreciate recs Keep Mag > 4 EEG showed no epileptiform discharges, possibly pseudoseizures versus encephalopathy Patient is appropriate for inpatient psychiatric treatment Objective - Vital Signs Vital signs: Vital Signs Temp 97.7 F 07/08/24 09:00 Pulse 75 07/08/24 09:00 Resp 12 07/08/24 09:00 BP 124/67 07/08/24 09:00 Pulse Ox 95 07/08/24 09:35 FiO2 Intake & Output 07/07/24 07/08/24 07/08/24 18:59 06:59 18:59 Output Total 0 0 Balance 0 0 Weight 45.359 kg 44.5 kg 44.5 kg Output: Urine 0 0 Other: Voiding Method Bedpan Diaper Diaper # Voids 2 1 - Labs CBC & Chem 7: 07/08/24 06:42 07/08/24 06:42 Labs: Abnormal Lab Results - Last 24 Hours (Table) 07/08/24 07/08/24 Range/Units 06:42 06:42 MCHC 30.9 L (31.0-37.0) g/dL Chloride 108 H (98-107) mmol/L Carbon Dioxide 20 L (22-30) mmol/L
[2024-07-08] MEDS ORDERED: LACOSAMIDE 150 MG TABLET PO SCH ×2 (21:00)
[2024-07-08] MEDS ORDERED: CENOBAMATE PO SCH (21:00)
[2024-07-08] MEDS: LACOSAMIDE 50 MG TABLET PO SCH (21:28)
[2024-07-08] MEDS: XCOPRI PO SCH (21:28)
[2024-07-09 08:22] VITALS: RESP 16
--- NOTE | 2024-07-09 08:24 | P.PN ---
Subjective Progress Note Date: 07/08/24 Patient was seen for a follow-up. Patient is in ICU. No further seizures have reported. I spoke to patient's neurologist Dr. Phipps at the [facility] via M- Line. She mentions that there is a lot of trouble with medications with the patient. She is sometimes noncompliant with medication. Dr. Leroy concurred that patient has focal epilepsy with left temporal lobe discharges. She is medically refractory epilepsy. She is being considered for surgical treatment for her epilepsy. She has been referred to potential epilepsy surgery. Dr. Phipps mentioned that patient should be taking the Vimpat 200 mg twice a day and is on titrating up dose of Xcopri, and should be on 100 mg a day. I informed her that patient has a starter pack in which she is probably taking Xcopri 25 mg daily. I also informed her that patient's mother has informed that patient is probably not taking Vimpat as recommended. Dr. Leroy also mentioned that she had recommended patient's mother to monitor dose of Xcopri. She mentions that as patient is probably taking Xcopri 25 mg daily at this time, she would recommend to go from there, and after she has completed the 14 days of 25 mg, she should go up to 50 mg. She was going to send a prescription of titration pack of 50 and 100 mg tablets to the pharmacy. Patient should go on to 50 mg when she completes the current starter kit. If patient has any seizures, we will go up to 50 mg immediately. I spoke to the patient, she does not know about how many pills of Vimpat she took. She does not know the dosing of her medications, still appears somewhat confused, or does not want to inform details. Objective - Vital Signs Vital signs: Vital Signs Temp 97.7 F 07/08/24 09:00 Pulse 75 07/08/24 09:00 Resp 12 07/08/24 09:00 BP 124/67 07/08/24 09:00 Pulse Ox 95 07/08/24 09:35 FiO2 Intake & Output 07/07/24 07/08/24 07/08/24 18:59 06:59 18:59 Output Total 0 0 Balance 0 0 Weight 45.359 kg 44.5 kg 44.5 kg Output: Urine 0 0 Other: Voiding Method Bedpan Diaper Diaper # Voids 2 1 - Exam Patient is somnolent, on waking up, she was not very cooperating with the history taking her examination. She is a very flat affect. She appears depressed. Detailed examination deferred. No seizures reported by the nursing staff. 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 * 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 * History of medication noncompliance. * Anxiety, depression * Marijuana use Plan: * Patient's mentation is improving. No seizures reported. * EEG was performed which was abnormal sleep EEG. Awake pattern was not seen in the entire study. Underlying at least moderate encephalopathy cannot be ruled out. Clinical correlation and follow-up EEG recommended as clinically indicated. No epileptiform activity was seen. * Patient takes Xcopri , perhaps at 25 mg daily dose. We'll try to continue this medication. After she has completed her 14 days of Xcopri 25 mg, she will go up to 50 mg. Stop Keppra, and resume Vimpat 200 mg twice a day, as recommended by her neurologist Dr. Phipps. However we will hold off on Vimpat, until the Vimpat level is available. * Await Vimpat levels. * Psychiatry has seen the patient who wants to limit benzodiazepine because it can make patient more confused and delirious. Patient started on Zyprexa for agitation. Psychiatry following patient closely. * Patient follows up at [facility] with Dr. Phipps. Discussed with Dr. Phipps in detail via M-Line at [phone], as mentioned above * Seizure precautions * DVT prophylaxis: Start heparin 5000 units subcu every 12 hours.
[2024-07-09] MEDS ORDERED: CENOBAMATE PO SCH (09:00)
[2024-07-09 09:35] VITALS: BMI 16.5
[2024-07-09] MEDS: HEPARIN SODIUM,PORCINE 5,000 UNIT/ML 1 ML VIAL SQ SCH (10:00)
[2024-07-09] MEDS: PANTOPRAZOLE 40 MG TABLET PO SCH (10:00)
--- NOTE | 2024-07-09 12:29 | P.DS ---
Providers Date of admission: 07/07/24 05:38 Expected date of discharge: 07/09/24 Attending physician: Yun Powell MD Consults: 07/07/24 05:35 Consult Physician Routine Consulting Provider: Rakesh Gifford Consult Reason/Comments: icu Do you want consulting provider notified?: Yes Consult Physician Routine Consulting Provider: Brandon Pastor Consult Reason/Comments: sz,h/o Do you want consulting provider notified?: Yes Consult Physician Urgent Consulting Provider: Psychiatry - [facility] Psychiatry Consult Reason/Comments: suicide attempt Do you want consulting provider notified?: Already Contacted Primary care physician: Stated None Hospital Course: Intentional overdose Suicidal ideation Seizure disorder Cannabinoid use disorder Hospital course: 19-year-old woman with past medical history of seizure disorder presented for concerns of intentional overdose of her Vimpat. Upon arrival, patient was afebrile, 111/76, heart rate 92, 98% on room air. CBC was unremarkable. Basic metabolic panel showed hyponatremia to 136, CO2 of 20. Liver function tests are unremarkable. Prolactin was 10.2. Troponin was less than 0.012. Lipase was 41. ABG showed pH of 7.34, pCO2 of 131, pCO2 of 43. INR is 1.2. Urinalysis showed 1+ protein, trace ketones. Urine tox cream was positive for benzodiazepines and marijuana. Alcohol level was negative. Tylenol level was n egative. Salicylate level was negative. Patient was noted to have some convulsive episodes and was given Ativan and Versed. Patient was seen in consultation with neurology and admitted to the ICU for further management. Neurology discussed the case with the patient's neurologist from [facility] who recommended continuation of Vimpat pending level. Patient quickly returned back to her baseline, but did not demonstrate insight or judgment into her suicidal attempt and requested on multiple occasions to leave the hospital. Therefore, patient was petitioned and certified for treatment in the mental health unit and was transferred to the behavioral health unit for further evaluation. Patient is medically cleared for discharge to mental health unit. I spent 38 minutes coordinating this discharge Gen: In NAD, non-toxic HEENT: normocephalic, atraumatic, hearing acuity is intant, mucous membranes moist CVS: perfusing all extremities well, no pitting edema, Respiratory: symmetric chest expansion, no accessory muscle use, GI: soft, NTTP, ND, : no suprapubic tenderness, no CVA tenderness MSK/Derm: no rashes, cyanosis Neuro: CN II-XII intact, no motor weakness, Psych: cooperative, euthymic mood, judgment and insight is poor Patient Condition at Discharge: Good Plan - Discharge Summary Discharge Rx Participant: Yes New Discharge Prescriptions: No Action Cenobamate [Xcopri] See Taper PO DIRECTED Lacosamide 200 mg PO BID diazePAM [Valtoco] 10 mg NASAL DIRECTED PRN PRN Reason: Seizures Discharge Medication List Lacosamide 200 mg PO BID 05/19/23 [History] Cenobamate [Xcopri] See Taper PO DIRECTED 07/07/24 [History] diazePAM [Valtoco] 10 mg NASAL DIRECTED PRN 07/07/24 [History] Follow up Appointment(s)/Referral(s): None,Stated [Primary Care Provider] - 1-2 days Patient Instructions/Handouts: Adult Overdose (ED)
--- NOTE | 2024-07-09 13:18 | P.PN ---
Subjective Progress Note Date: 07/09/24 This is a 19-year-old female patient with a known history of seizure disorder that started back in May 2019. She had been maintained on lancosamide. She recently had a break-up with her boyfriend and was suicidal and receiving counseling for about 1 month. She was brought into the emergency room early this morning after a suspected overdose. She was found obtunded. Control was contacted. QRS and breathing difficulties were 2 things of concern. EKG shows a QRS of 90 ms. He does remain obtunded while seen in consultation in the emergency department. She is maintaining O2 saturations in the 90s air. She has been afebrile. Hemodynamically stable. Arterial blood gases were obtained and revealed a PaO2 of 131, pCO2 43 and a pH of 7.34. White count 8.7. Hemoglobin 13.3. Platelets 273. INR 1.2. Sodium 136. Potassium 3.6. Bicarb 20. BUN 817. Creatinine 0.68. Glucose 186. Troponin negative x 1. Creatinine kinase 86. Urinalysis clean. Urine drug screen positive for benzodi azepines and marijuana. Her family is at the bedside. The patient is seen today July 08, 2024 in follow-up in the intensive care unit. She is awake and alert and oriented x 3. Denies any shortness of breath cough or congestion no dizziness or lightheadedness. No chest pain or palpitations. Maintaining good O2 saturations in the 90s on room air. No seizure activity. White count 6.4. Hemoglobin 13.4. Platelets 187. Sodium 138. Potassium 3.8. Bicarb 20. BUN 7. Creatinine 0.59. Glucose 90. She is continued on Keppra. EEG revealed no epileptiform activity. The patient is seen today July 09, 2024 in follow-up in the intensive care unit. She is a medical floor overflow patient. customs brokerage agent at the bedside. No seizure activity. She is maintaining good O2 saturations in the 90s on room air. She has been afebrile. Hemodynamically stable. She is back on Vimpat. Heparin for DVT prophylaxis. Protonix for GI prophylaxis. NicoDerm patch in place. COVID screen negative. Objective - Vital Signs Vital signs: Vital Signs Temp 98.1 F 07/09/24 08:00 Pulse 63 07/09/24 08:00 Resp 16 07/09/24 08:00 BP 110/79 07/09/24 08:00 Pulse Ox 98 07/09/24 08:00 FiO2 Intake & Output 07/08/24 07/09/24 07/09/24 18:59 06:59 18:59 Output Total 0 0 Balance 0 0 Weight 44.5 kg 49.2 kg 49.2 kg Output: Urine 0 0 Other: Voiding Method Diaper Toilet Toilet # Voids 1 1 - Exam GENERAL EXAM: Awake, alert 19-year-old female, sitting up in bed, on room air, comfortable in no apparent distress. HEAD: Normocephalic. EYES: Normal reaction of pupils, equal size. NOSE: Clear with pink turbinates. THROAT: No erythema or exudates. NECK: No masses, no JVD. CHEST: No chest wall deformity. LUNGS: Equal air entry with no crackles, wheeze, rhonchi or dullness. CVS: S1 and S2 normal with no audible murmur, regular rhythm. ABDOMEN: No hepatosplenomegaly, normal bowel sounds, no guarding or rigidity. SPINE: No scoliosis or deformity SKIN: No rashes CENTRAL NERVOUS SYSTEM: No focal deficits, tone is normal in all 4 extremities. EXTREMITIES: There is no peripheral edema. No clubbing, no cyanosis. Peripheral pulses are intact. - Labs CBC & Chem 7: 07/08/24 06:42 07/08/24 06:42 Assessment and Plan Assessment: Altered mental status secondary to suspected intentional drug overdose with lacosamide. Recovered and awake and alert today History of seizure disorders maintained on lacosamide and Xcopri History of vaping Marijuana use Recent break-up with her boyfriend and was receiving counseling Plan: The patient was seen and evaluated Labs and medications reviewed Currently stable and on room air customs brokerage agent remains at the bedside The plan is to transfer to the psychiatric inpatient unit today I have personally seen and examined the patient, performed the documentation and the assessment and plan as written. Number of minutes spent on the visit: 10 Dictation was produced using [employer] dictation software. Please excuse any grammatical, word or spelling errors.
[2024-07-09 14:04] VITALS: BP 132/85; PULSE 60; TEMP 98.6
== END 2024-07-09 14:07 | disposition short-term general hospital (02) | DRG 817 ==
LOC: EC 04:07 → 2SICU 05:38
PROVIDERS: ADMIT Internal Medicine; ATTEND Internal Medicine
DX: T42.6X2A Poisoning by other antiepileptic and sedative-hypnotic drugs, intentional self-harm, initial encounter (principal); G40.A19 Absence epileptic syndrome, intractable, without status epilepticus; G40.119 Localization-related (focal) (partial) symptomatic epilepsy and epileptic syndromes with simple partial seizures, intractable, without status epilepticus; E87.3 Alkalosis; F05 Delirium due to known physiological condition; E87.1 Hypo-osmolality and hyponatremia; F32.A Depression, unspecified; F12.10 Cannabis abuse, uncomplicated; R45.851 Suicidal ideations; E86.1 Hypovolemia; F17.290 Nicotine dependence, other tobacco product, uncomplicated; T42.6X6A Underdosing of other antiepileptic and sedative-hypnotic drugs, initial encounter; T42.4X6A Underdosing of benzodiazepines, initial encounter; F41.9 Anxiety disorder, unspecified; Z91.148 Patient's other noncompliance with medication regimen for other reason; Z79.899 Other long term (current) drug therapy
CPT/HCPCS: 36415; 36600; 80053; 80143; 80179; 80235; 80306; 80320; 81001; 81025; 82550; 82805; 83690; 83735; 84100; 84146; 84484; 85025; 85610; 87635; 93005; 95819; 96361; 96372; 96374; 96375; 96376; 99285

== ENCOUNTER 2024-07-09 12:36 | Inpatient (IN) | payer MEDICAID ==
[2024-07-09] MEDS ORDERED: IBUPROFEN 600 MG TAB PO PRN (13:31)
[2024-07-09] MEDS ORDERED: ACETAMINOPHEN TAB 325 MG TAB PO PRN (13:31)
[2024-07-09] MEDS ORDERED: MAG HYDROX/AL HYDROX/SIMETH 355 ML BOTTLE PO PRN (13:31)
[2024-07-09] MEDS ORDERED: MAGNESIUM HYDROXIDE 2,400 MG/30 ML CUP PO PRN (13:31)
[2024-07-09] MEDS ORDERED: LORazepam 1 MG TAB PO PRN (13:36)
[2024-07-09] MEDS ORDERED: HALOPERIDOL LACTATE 5 MG/ML 1 ML VIAL IM PRN (13:36)
[2024-07-09] MEDS ORDERED: haloperidoL 5 MG TAB PO PRN (13:36)
[2024-07-09] MEDS ORDERED: LORazepam 2 MG/ML INJ IM PRN (13:36)
[2024-07-09] MEDS: CENOBAMATE PO SCH (20:28)
[2024-07-10 07:33] VITALS: BMI 15.3
[2024-07-10] MEDS: NICOTINE 21MG/24HR PATCH TRANSDERM SCH (07:55)
[2024-07-10] MEDS: PANTOPRAZOLE 40 MG TABLET PO SCH (07:56)
[2024-07-10] MEDS ORDERED: LORazepam 1 MG TAB PO PRN (11:57)
[2024-07-10] MEDS ORDERED: SERTRALINE 25 MG TAB PO SCH (12:00)
--- NOTE | 2024-07-10 12:17 | P.HP ---
Psychiatric H&P - . H&P Date: 07/10/24 History & Physical: Allergies Allergy/AdvReac Type Severity Reaction Status Date / Time cat dander Allergy Rash/Hives Verified 07/07/24 07:54 chocolate flavor Allergy Rash/Hives Verified 07/07/24 07:54 dog dander Allergy Rash/Hives Verified 07/07/24 07:54 dust Allergy Anaphylaxis Uncoded 07/07/24 07:54 Vital Signs Temp 98.4 F 07/10/24 09:01 Pulse 85 07/10/24 09:01 Resp 16 07/10/24 09:01 BP 118/84 07/10/24 09:01 Pulse Ox 99 07/10/24 09:01 FiO2 Intake & Output 07/09/24 07/10/24 07/10/24 18:59 06:59 18:59 Weight 45.614 kg 45.614 kg Laboratory Last Values Estimated Ave Glu mg/dL 100 mg/dL 07/08/24 06:42 Hemoglobin A1c 5.1 % (<=6.0) 07/08/24 06:42 TSH 4.190 mIU/L (0.465-4.680) 07/08/24 06:42 07/10/24 12:07 IDENTIFYING DATA: This patient is a 19-year-old female, , single lives with her mother in a house, works at an [employer] HISTORY OF PRESENT ILLNESS: Patient was seen initially by conventional mortgage underwriter for psychiatric consultation and as per note "the patient presented to the hospital initially on 07/07, after a overdose suicide attempt, apparently patient has a history of seizures. Patient was unable to give history due to her mental status. Patient apparently overdosed on lacosamide. According to ER report patient apparently had a break-up with her boyfriend and then overdosed, was found by boyfriend and the mother, brought into the hospital, currently awaiting ICU bed. Patient was seen today laying in bed, she was turned to her side in a position, intermittently opening and closing her eyes and moving spontaneously in her bed. She was surrounded by her friends and family at the bedside. [place] attempted to speak with patient, she was not able to respond verbally or follow any directions with her hands. Patient's friends and family state that patient had a recent argument with her ex boyfriend and overdosed on her seizure medications. Patient apparently had texted her best friend a long message stating she was sorry for several things that had occurred, wishing her farewell. She also had been posting on Facebook cryptic messages about her feeling depressed and people letting her down. Patient's father claims that she has been having several issues with her mother, states that her mother lives with her and she has been trying to get her mother out of the house and find a different place to live. Patient was unable to answer any questions at this time, rest of the past psychiatric and social history were given by the family." Patient was followed by neurology and admitted to the ICU, she was treated medically, restarted back on her main seizure medication. Patient was reportedly attempting to sign out AGAINST MEDICAL ADVICE while in the ICU. Patient was transferred to the mental health unit last night by petition and certificate. Patient was seen today agreeable to speak to conventional mortgage underwriter in the office. Patient was superficially cooperative, displayed fairly poor insight as to what happened. She claims that she made a "suicidal gesture" when she was on the phone with her boyfriend. Claims that she "wanted someone to know that I needed help". She claims that she was not trying to end her life however did take a handful of her seizure medications lacosamide. She claims that this was after a "disagreement" with her boyfriend over the phone. Claims that she told him after she did it and she attempted to go to the bathroom to vomit however she claims that she collapsed on the floor. Her mother and boyfriend called EMS to bring her to the hospital. She she was minimizing the suicide attempt minimizing her depression and need for being in the hospital. She believes that she does not need to be here and would prefer outpatient treatment. Minimized her depression as well minimizing anxiety. Claims that her stressors are "mainly finances bills and my job". States that her sleep and appetite are fair. She is denying any current suicidal homicidal ideations intent or plan denying any auditory or visual hallucinations. Denying any delusions or paranoia at this time. She is not reporting any recreational drug use does not use cigarettes or alcohol or marijuana. PAST PSYCHIATRIC HISTORY: Patient has a a history of seizures, major depressive disorder and reportedly has PTSD. Patient is currently on antiepileptic medications no psychiatric medications. Patient has no previous psychiatric hospitalizations. She claims that she currently follows up at [facility] with her therapist, was last seen by her nurse practitioner in November 2021. Denies any previous suicide attempts. Past Medical History: Seizure Disorder Additional Past Medical History / Comment(s): Seizures History of Any Multi-Drug Resistant Organisms: None Reported Past Surgical History: No Surgical Hx Reported Past Anesthesia/Blood Transfusion Reactions: No Reported Reaction Past Psychological History: No Psychological Hx Reported Smoking Status: Current every day smoker Past Alcohol Use History: None Reported Past Drug Use History: None Reported ALLERGIES: as per EMR. CHEMICAL DEPENDENCY HISTORY: As per HPI FAMILY PSYCHIATRIC/SUBSTANCE USE HISTORY: Denies SOCIAL HISTORY: Patient was born and raised in [place]. Completed high school. 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 Denies any legal history. MENTAL STATUS EXAM: General Appearance: Patient appears to be thin, stated age is alert, minimizing and superficial. Patient appears to have fair hygiene and grooming wearing hospital gown with fair eye contact. Behavior: Patient is sitting in chair, minimizing evasive and superficial Speech: Speech is fluent, not pressured Mood/Affect: Claims that her mood is "fine" minimizing depression and anxiety, affect is incongruent Suicidality/Homicidality: Denies Perceptions: Denies any hallucinations Though content/process: Minimizing her suicide attempt and need for mental health treatment. Denying any delusions or paranoia. Logical, goal oriented. Memory and concentration: Alert and oriented x 3, follows directions and commands Judgment and insight: Poor/superficial IMPRESSIONS: suicide attempt by intentional overdose of seizure medications Major depressive disorder without psychotic features History of PTSD Seizure disorder STRENGTHS/WEAKNESSES: strength is that patient is resilient. Weakness is that patient has poor judgment and is impulsive INTELLECT: Average PLAN: -Patient is admitted under involuntary status to MHU for stabilization of psychiatric symptoms and safety. Patient has signed adult voluntary form and has not signed medication consent and is placed in patient's chart. A second certification was completed and along with petition will be filed for court. -Medications : Zoloft 25 mg nightly for mood/anxiety, increase as tolerated. Melatonin nightly as needed for insomnia. restarted back on her AED Xcopri as per neurology recommendations. -Ativan and Haldol PRN for agitation/aggression -Patient was informed of the risks, benefits and side effects of the medications and patient verbally consented to taking the medications. Patient signed med consent form and was placed in chart. Patient was offered medication information and accepted it -Internal Medicine consult to perform medical evaluation and physical. -NRT -not needed as patient does not smoke -SW on board for discharge planning. Encourage patient to participate in groups to work on coping skills. Will await deferral and court date. 07/10/24 12:17
[2024-07-10] MEDS: SERTRALINE 25 MG TAB PO SCH (19:42)
[2024-07-10] MEDS: MELATONIN 3 MG TABLET PO PRN (23:50)
--- NOTE | 2024-07-11 11:34 | P.PN ---
Progress Note - Text Progress Note Date: 07/11/24 Interval history: Patient was seen wandering the hallways and was directable and agreeable to s peak with law writer. Patient has been socializing with others on the unit, going to groups. Claims that she is doing a bit better, states that she is trying to reflect back on why she did this. States that she was visited by her mother and states that it went well. Claims that she tolerated the medications well last night, no nausea or vomiting today, no upset stomach. States that her appetite is fair however does not like the food, claims that she slept on and off last night agreeable to have an increase in her melatonin tonight. At this time patient denies any suicidal or homicidal ideations intent or plan. Denies any Auditory or visual hallucinations. Patient denies any side effects from the medications and has been compliant with meds. Mental status exam: General Appearance: Patient appears to be thin, stated age is alert, directable, and cooperative. Behavior: No agitated behavior. Patient is calm and directable Speech: Patient's speech is fluent and nonpressured. Mood/Affect: Mood is improving mildly, affect is congruent and constricted. Improving mildly Suicidality/Homicidality: Patient denies having any suicidal or homicidal ideation intent or plan. Perceptions: Patient denies any auditory or visual hallucinations. Though content/process: There is no evidence of any delusional thought content and thought process is linear and goal-directed. Memory and concentration: AOX3, grossly intact for the purposes of this session Judgment and insight: improving mildly Assessment/Plan: Continue with current diagnosis. Patient continues to meet criteria for inpatient psychiatric admission for symptom stabilization and safety. Patient will be maintained on current psychotropic medication regimen, increase melatonin to 10 mg nightly and also increase Zoloft to 50 mg nightly for mood/anxiety.. Monitor for medication compliance and for any psychotropic medication side effects. Will continue to monitor ongoing response to treatment. Encouraged participation in milieu.
[2024-07-11] MEDS: SERTRALINE 50 MG TAB PO SCH (20:07)
[2024-07-11] MEDS: MELATONIN 5 MG TABLET PO SCH (20:07)
--- NOTE | 2024-07-12 12:21 | P.PN ---
Progress Note - Text Progress Note Date: 07/12/24 Interval history: Patient was seen wandering the hallways and was directable and agreeable to s peak with financial writer. Patient has been socializing with others on the unit. Claims that she has been trying to interact with others on the unit, claims that she is feeling an improvement in her anxiety and also mood. Not reporting any issues with her medications at this time. States that she did speak with her mother yesterday which went well. Has been eating well, showering. Denies any issues with her melatonin, wants to stay on the same dose. At this time patient denies any suicidal or homicidal ideations intent or plan. Denies any Auditory or visual hallucinations. Patient denies any side effects from the medications and has been compliant with meds. Mental status exam: General Appearance: Patient appears to be thin, stated age is alert, directable, and cooperative. Behavior: No agitated behavior. Patient is calm and directable, improving mildly Speech: Patient's speech is fluent and nonpressured. Mood/Affect: Mood is improving mildly, affect is congruent and constricted. Imp roving mildly Suicidality/Homicidality: Patient denies having any suicidal or homicidal ideation intent or plan. Perceptions: Patient denies any auditory or visual hallucinations. Though content/process: There is no evidence of any delusional thought content and thought process is linear and goal-directed. Memory and concentration: AOX3, grossly intact for the purposes of this session Judgment and insight: improving mildly Assessment/Plan: Continue with current diagnosis. Patient continues to meet criteria for inpatient psychiatric admission for symptom stabilization and safety. Patient will be maintained on current psychotropic medication regimen. Monitor for medication compliance and for any psychotropic medication side effects. Will continue to monitor ongoing response to treatment. Encouraged participation in milieu. Possible discharge Saturday if patient is improving.
[2024-07-13 10:19] VITALS: RESP 16
--- NOTE | 2024-07-13 10:54 | P.PN ---
Progress Note - Text Progress Note Date: 07/13/24 Interval history: Patient was seen wandering the hallways and was directable and agreeable to s peak with engineering technical writer. Patient continues to state that she is doing a bit better today. Continues to remain somewhat superficial focused on discharge. We spoke again about the court process and her needing to see the sports attorney. She claims that she slept fairly last night has been going to groups. Participating on the unit. Claims that her mood and anxiety been mildly improving since yesterday. Claims that she did speak with her parents over the phone however did not state much about what they talked about. Not reporting any issues with her medications at this time. At this time patient denies any suicidal or homicidal ideations intent or plan. Denies any Auditory or visual hallucinations. Patient denies any side effects from the medications and has been compliant with meds. Mental status exam: General Appearance: Patient appears to be thin, stated age is alert, directable, and cooperative. Behavior: No agitated behavior. Patient is calm and directable, improving mildly Speech: Patient's speech is fluent and nonpressured. Mood/Affect: Mood is improving mildly, affect is congruent and constricted. Improving mildly Suicidality/Homicidality: Patient denies having any suicidal or homicidal ideation intent or plan. Perceptions: Patient denies any auditory or visual hallucinations. Though content/process: There is no evidence of any delusional thought content and thought process is linear and goal-directed. Memory and concentration: AOX3, grossly intact for the purposes of this session Judgment and insight: Superficial, improving mildly Assessment/Plan: Continue with current diagnosis. Patient continues to meet criteria for inpatient psychiatric admission for symptom stabilization and safety. Patient will be maintained on current psychotropic medication regimen. M onitor for medication compliance and for any psychotropic medication side effects. Will continue to monitor ongoing response to treatment. Encouraged participation in milieu. Possible discharge Saturday if patient is improving. Deferral set for tomorrow with sports attorney.
--- NOTE | 2024-07-14 04:56 | P.CONS ---
History of Present Illness - Reason for Consult Consult date: 07/14/24 - History of Present Illness The patient is a 19-year-old female with a PMH of seizure disorder who had presented to the emergency room after intentional Vimpat overdose. The patient was initially admitted to the medical service where she was subsequently cleared and transferred to the mental health unit where she was seen and evaluated. The patient reports feeling well and had no active complaints at the time of inte rview. She reports no further seizure-like episodes. The patient follows with Dr. Leroy at [facility] and takes Xcopri along with lacosamide for her seizure disorder. She denied experiencing chest discomfort, shortness of breath, fever, chills, cough, nausea, vomiting, abdominal pain, diarrhea. Review of systems: Pertinent positives and negatives as discussed in HPI, a complete review of systems was performed and all other systems are negative. Physical examination: General: non toxic, no distress, appears at stated age, normal weight Derm: no unusual rashes/lesions, no unusual ecchymoses, warm, dry Head: atraumatic, normocephalic, symmetric Eyes: EOMI, no lid lag, anicteric sclera ENT: Nose and ears atraumatic, no thrush, no pharyngeal erythema Neck: trachea midline, supple Mouth: no lip lesion, mucus membranes moist Cardiovascular: S1S2 reg, no murmur, no edema Lungs: CTA bilateral, no rhonchi, no rales , no accessory muscle use Abdominal: soft, nontender to palpation, no guarding Ext: no gross muscle atrophy, no contractures, Neuro: No gross focal neuro deficits noted Psych: Alert, oriented, appropriate affect Assessment: Seizure disorder with intentional Vimpat overdose Depression with suicidal ideation Data Review: Reviewed with lacosamide levels undetectable Plan: Neurology recommendations reviewed and appreciated Resume patient's home Vimpat 200 mg p.o. twice daily along with her Xcopri Defer management of depression and suicidal ideation to the primary psychiatry service Thank you for allowing us to participate in the care of this patient. We will follow peripherally. Do not hesitate to contact us with questions. Someone can be reached from the [facility] hospitalist group at all hours of the day at [phone]. Past Medical History Past Medical History: Seizure Disorder Additional Past Medical History / Comment(s): Seizures History of Any Multi-Drug Resistant Organisms: None Reported Past Surgical History: No Surgical Hx Reported Additional Past Surgical History / Comment(s): scheduled for brain surgery for epilepsy; did a CT scan of her brain on 07/03 [facility], and that is for a stereo EEG r/t them not "seeing" a seizure when they do a "regular" EEG; Per mom it is r/t the seizure being "deep" Past Anesthesia/Blood Transfusion Reactions: No Reported Reaction Past Psychological History: No Psychological Hx Reported Additional Psychological History / Comment(s): "regular at [facility]" weekly visits X 5 years Smoking Status: Vaper Past Alcohol Use History: None Reported Additional Past Alcohol Use History / Comment(s): patient vapes one vape every 2 weeks Past Drug Use History: Marijuana - Past Family History Mother Additional Family Medical History / Comment(s): no health issues Father Additional Family Medical History / Comment(s): no health issues. Medications and Allergies Home Medications Medication Instructions Recorded Confirmed Type Lacosamide 200 mg PO BID 05/19/23 07/09/24 History Cenobamate [Xcopri] See Taper PO DIRECTED 07/07/24 07/09/24 History diazePAM [Valtoco] 10 mg NASAL DIRECTED PRN 07/07/24 07/09/24 History Allergies Allergy/AdvReac Type Severity Reaction Status Date / Time cat dander Allergy Rash/Hives Verified 07/07/24 07:54 chocolate flavor Allergy Rash/Hives Verified 07/07/24 07:54 dog dander Allergy Rash/Hives Verified 07/07/24 07:54 dust Allergy Anaphylaxis Uncoded 07/07/24 07:54 Physical Exam Vitals: Vital Signs Temp Pulse Resp BP Pulse Ox 07/13/24 22:00 97.9 F 74 16 126/74 98 07/13/24 10:18 97.4 F L 91 16 113/80 99
[2024-07-14 08:10] LABS: Basophils # (A) 0.1 k/uL (0-0.2); Basophils % (A) 1 %; Eosinophils # (A) 0.2 k/uL (0-0.7); Eosinophils % (A) 3 %; HCT 46.6 % (34.0-46.0); HGB 14.7 gm/dL (11.4-16.0); Lymphocytes # (A) 2.3 k/uL (1.0-4.8); Lymphocytes % (A) 42 %; MCH 30.1 pg (25.0-35.0); MCHC 31.5 g/dL (31.0-37.0); MCV 95.6 fL (80.0-100.0); Mean Platelet Volume 8.6; Monocytes # (A) 0.4 k/uL (0-1.0); Monocytes % (A) 7 %; Neutrophils # (A) 2.4 k/uL (1.3-7.7); Neutrophils % (A) 44 %; Platelet Count 211 k/uL (150-450); RBC 4.88 m/uL (3.80-5.40); RDW 12.1 % (11.5-15.5); WBC 5.5 k/uL (4.0-11.0)
[2024-07-14 08:23] LABS: African American GFR (CKD) >90 (>60 ml/min/1.73 sqM); Anion Gap 7 mmol/L; Blood Urea Nitrogen 18 mg/dL (7-17); Calcium 9.7 mg/dL (8.4-10.2); Carbon Dioxide 26 mmol/L (22-30); Chloride 105 mmol/L (98-107); Glucose 89 mg/dL (74-99); Non-African American GFR(CKD) >90 (>60 ml/min/1.73 sqM); Potassium 4.7 mmol/L (3.5-5.1); Sodium 138 mmol/L (137-145)
[2024-07-14] MEDS: LACOSAMIDE 50 MG TABLET PO SCH (08:54)
[2024-07-14 08:56] VITALS: BP 109/79; PULSE 89; TEMP 97.6
--- NOTE | 2024-07-14 11:27 | P.DS ---
Providers Date of admission: 07/09/24 14:11 Expected date of discharge: 07/14/24 Attending physician: Jose Alfredo Mireles MD Consults: 07/09/24 13:31 Consult Physician Routine Consulting Provider: Sandro Physician Consult Reason/Comments: h&p, Seizure medications Do you want consulting provider notified?: Yes Primary care physician: Stated None - Discharge Diagnosis(es) (1) Suicide attempt by drug overdose Current Visit: Yes Status: Acute Priority: High (2) Major depressive disorder without psychotic features Current Visit: Yes Status: Acute Priority: High (3) History of posttraumatic stress disorder (PTSD) Current Visit: Yes Status: Acute Priority: Medium (4) Seizure disorder Current Visit: Yes Status: Acute Priority: Medium (5) Nicotine dependence Current Visit: Yes Status: Acute Priority: Low Hospital Course: Admission HPI: Admission note was completed by short story writer "This patient is a 19-year-old female, , single lives with her mother in a house, 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 patient was seen initially by short story writer for psychiatric consultation and as per note "the patient presented to the hospital initially on 07/07, after a overdose suicide attempt, apparently patient has a history of seizures. Patient was unable to give history due to her mental status. Patient apparently overdosed on lacosamide. According to ER report patient apparently had a break- up with her boyfriend and then overdosed, was found by boyfriend and the mother, brought into the hospital, currently awaiting ICU bed. Patient was seen today laying in bed, she was turned to her side in a position, intermittently opening and closing her eyes and moving spontaneously in her bed. She was surrounded by her friends and family at the bedside. Flying Squad Worker attempted to speak with patient, she was not able to respond verbally or follow any directions with her hands. Patient's friends and family state that patient had a recent argument with her ex boyfriend and overdosed on her seizure medications. Patient apparently had texted her best friend a long message stating she was sorry for several things that had occurred, wishing her farewell. She also had been posting on [employer] cryptic messages about her feeling depressed and people letting her down. Patient's father claims that she has been having several issues with her mother, states that her mother lives with her and she has been trying to get her mother out of the house and find a different place to live. Patient was unable to answer any questions at this time, rest of the past psychiatric and social history were given by the family." Patient was followed by neurology and admitted to the ICU, she was treated medically, restarted back on her main seizure medication. Patient was reportedly attempting to sign out AGAINST MEDICAL ADVICE while in the ICU. Patient was transferred to the mental health unit last night by petition and certificate. Patient was seen today agreeable to speak to short story writer in the office. Patient was superficially cooperative, displayed fairly poor insight as to what happened. She claims that she made a "suicidal gesture" when she was on the phone with her boyfriend. Claims that she "wanted someone to know that I needed help". She claims that she was not trying to end her life however did take a handful of her seizure medications lacosamide. She claims that this was after a "disagreement" with her boyfriend over the phone. Claims that she told him after she did it and she attempted to go to the bathroom to vomit however she claims that she collapsed on the floor. Her mother and boyfriend called EMS to bring her to the hospital. She she was minimizing the suicide attempt minimizing her depression and need for being in the hospital. She believes that she does not need to be here and would prefer outpatient treatment. Minimized her depression as well minimizing anxiety. Claims that her stressors are "mainly finances bills and my job". States that her sleep and appetite are fair. She is denying any current suicidal homicidal ideations intent or plan denying any auditory or visual hallucinations. Denying any delusions or paranoia at this time. She is not reporting any recreational drug use does not use cigarettes or alcohol or marijuana." Hospital course: Upon admission to the unit patient was admitted involuntarily on a petition and certificate and a second certificate was completed and faxed to the courts. Patient ended up signing a deferral with the estate planning attorney and agreeing to treatment. Patient was initially evasive guarded depressed however with time and treatment patient got along well with other patients on the unit and followed unit protocol. Patient was compliant with the medications and denied any side effects throughout hospital course. Patient was started on Zoloft increased to dose of 50 mg daily for mood/anxiety, melatonin 10 mg nightly for sleep. Patient spoke of her stressors and engaged in therapy both group/activity therapy. Patient was also seen by medical team for history and physical exam. Throughout the course of the hospitalization patient gradually improved with regards to mood, anxiety, sleep and became more future oriented with improved insight and judgment. On the day of discharge patient denied any suicidal or homicidal ideations intent or plan denied any auditory or visual hallucinations. Patient endorsed wanting to live for their health and family and her job. The patient denied any access to guns or weapons. Patient denied any paranoia and did not endorse any delusions. Patient does not have a significant history of substance abuse and was counseled on abstaining from all substances including alcohol and marijuana. Patient was also counseled on the medications and need for regular compliance and was encouraged to follow-up with their outpatient appointment for mental health and also for primary care. Prior to discharge a family meeting will be arranged by healthcare social worker to answer any questions and ensure safety upon discharge incuding making sure that guns/weapons are either removed from the home or locked away. Mental status exam: General Appearance: Patient appears to be thin, stated age is alert, pleasant, and cooperative. Patient is in no acute distress and has improved hygiene and grooming Behavior: Patient is calmly seated without any agitated behavior. Speech: Patient's speech is fluent and nonpressured. Mood/Affect: Patient reports their mood is "good", affect is congruent and euthymic. Suicidality/Homicidality: Patient denies having any suicidal or homicidal ideation intent or plan. Perceptions: Patient denies any auditory or visual hallucinations. Though content/process: There is no evidence of any delusional thought content and thought process is linear and goal-directed. More future oriented Memory and concentration: AOX3, grossly intact for the purposes of this session. Can spell "WORLD" backwards correctly. Judgment and insight: improved with guarded prognosis Impression: Suicide attempt by intentional overdose of medications (antiepileptic meds) Major depressive disorder without psychotic features History of PTSD Nicotine dependence Plan: -Continue with discharge today as patient has improved and stabilized psychiatrically and is not currently an imminent threat to themself and/or others. Patient will remain at chronically elevated risk for harm to self and/or others due to their impulsivity. -Continue medications: Zoloft 50 mg daily for mood/anxiety, melatonin 10 mg nightly for sleep -Patient was counseled on the need for medication compliance and appropriate follow-up at mental health and also primary care for medical issues. Patient verbalized understanding and agreed. -Social work to arrange for and conduct family meeting to ensure safety upon discharge and answer any questions/concerns. also to ensure safe home environment that guns/weapons are either removed from the home or locked away. Social work also to arrange for patients follow up appointments with [facility] for psychiatric care along with follow up with primary care provider. -Patient counseled on abstaining from recreational drugs and marijuana and alcohol. Was informed/educated on the adverse effects on their physical and mental health. Patient verbally agreed and understood. -Patient was instructed to return to the hospital or seek immediate medical care if their psychiatric or medical symptoms do worsen or reoccur. Allergies Allergy/AdvReac Type Severity Reaction Status Date / Time cat dander Allergy Rash/Hives Verified 07/07/24 07:54 chocolate flavor Allergy Rash/Hives Verified 07/07/24 07:54 dog dander Allergy Rash/Hives Verified 07/07/24 07:54 dust Allergy Anaphylaxis Uncoded 07/07/24 07:54 Laboratory Results WBC 5.5 k/uL (4.0-11.0) 07/14/24 07:57 RBC 4.88 m/uL (3.80-5.40) 07/14/24 07:57 Hgb 14.7 gm/dL (11.4-16.0) 07/14/24 07:57 Hct 46.6 % (34.0-46.0) H 07/14/24 07:57 MCV 95.6 fL (80.0-100.0) 07/14/24 07:57 MCH 30.1 pg (25.0-35.0) 07/14/24 07:57 MCHC 31.5 g/dL (31.0-37.0) 07/14/24 07:57 RDW 12.1 % (11.5-15.5) 07/14/24 07:57 Plt Count 211 k/uL (150-450) 07/14/24 07:57 MPV 8.6 07/14/24 07:57 Neutrophils % 44 % 07/14/24 07:57 Lymphocytes % 42 % 07/14/24 07:57 Monocytes % 7 % 07/14/24 07:57 Eosinophils % 3 % 07/14/24 07:57 Basophils % 1 % 07/14/24 07:57 Neutrophils # 2.4 k/uL (1.3-7.7) 07/14/24 07:57 Lymphocytes # 2.3 k/uL (1.0-4.8) 07/14/24 07:57 Monocytes # 0.4 k/uL (0-1.0) 07/14/24 07:57 Eosinophils # 0.2 k/uL (0-0.7) 07/14/24 07:57 Basophils # 0.1 k/uL (0-0.2) 07/14/24 07:57 Sodium 138 mmol/L (137-145) 07/14/24 07:57 Potassium 4.7 mmol/L (3.5-5.1) 07/14/24 07:57 Chloride 105 mmol/L (98-107) 07/14/24 07:57 Carbon Dioxide 26 mmol/L (22-30) 07/14/24 07:57 Anion Gap 7 mmol/L 07/14/24 07:57 BUN 18 mg/dL (7-17) H 07/14/24 07:57 Creatinine 0.80 mg/dL (0.52-1.04) 07/14/24 07:57 Est GFR (CKD-EPI)AfAm >90 (>60 ml/min/1.73 sqM) 07/14/24 07:57 Est GFR (CKD-EPI)NonAf >90 (>60 ml/min/1.73 sqM) 07/14/24 07:57 Glucose 89 mg/dL (74-99) 07/14/24 07:[address] Glu mg/dL 100 mg/dL 07/08/24 06:42 Hemoglobin A1c 5.1 % (<=6.0) 07/08/24 06:42 Calcium 9.7 mg/dL (8.4-10.2) 07/14/24 07:57 TSH 4.190 mIU/L (0.465-4.680) 07/08/24 06:42 Vital Signs Temp 97.6 F 07/14/24 08:56 Pulse 89 07/14/24 08:56 Resp 16 07/13/24 22:00 BP 109/79 07/14/24 08:56 Pulse Ox 97 07/14/24 08:56 FiO2 Patient Condition at Discharge: Stable Plan - Discharge Summary Discharge Rx Participant: No New Discharge Prescriptions: New Nicotine 21Mg/24Hr Patch [Habitrol] 1 patch TRANSDERM DAILY 14 Days #14 patch Pantoprazole [Protonix] 40 mg PO AC-BRKFST 14 Days #14 tab Sertraline [Zoloft] 50 mg PO HS 14 Days #14 tab Melatonin 10 mg PO HS 14 Days #28 tab Continue Cenobamate [Xcopri] See Taper PO DIRECTED Lacosamide 200 mg PO BID 14 Days #28 tab Discontinued diazePAM [Valtoco] 10 mg NASAL DIRECTED PRN PRN Reason: Seizures Discharge Medication List Cenobamate [Xcopri] See Taper PO DIRECTED 07/07/24 [History] Lacosamide 200 mg PO BID 14 Days #28 tab 07/14/24 [Rx] Melatonin 10 mg PO HS 14 Days #28 tab 07/14/24 [Rx] Nicotine 21Mg/24Hr Patch [Habitrol] 1 patch TRANSDERM DAILY 14 Days #14 patch 07/14/24 [Rx] Pantoprazole [Protonix] 40 mg PO AC-BRKFST 14 Days #14 tab 07/14/24 [Rx] Sertraline [Zoloft] 50 mg PO HS 14 Days #14 tab 07/14/24 [Rx] Activity/Diet/Wound Care/Special Instructions: [facility] Discharge Info Avoid the use of street drugs and alcohol. Take all medications as prescribed. When you are in need of refills on your medications, please contact your outpatient medical provider and/or outpatient psychiatrist. Please go to your scheduled outpatient appointments for aftercare treatment. If symptoms return or become worse, call the crisis line at or and/or visit the nearest emergency room for assistance. National Suicide and Crisis Lifeline - call or text 328 Discharge Disposition: HOME SELF-CARE
== END 2024-07-14 13:14 | disposition home or self-care (01) | DRG 751 ==
LOC: 3MHU 14:11
PROVIDERS: ADMIT Psychiatry & Neurology Psychiatry; ATTEND Psychiatry & Neurology Psychiatry
DX: F32.9 Major depressive disorder, single episode, unspecified (principal); F41.9 Anxiety disorder, unspecified; F43.10 Post-traumatic stress disorder, unspecified; G40.909 Epilepsy, unspecified, not intractable, without status epilepticus; F17.290 Nicotine dependence, other tobacco product, uncomplicated; T42.7 Poisoning by, adverse effect of and underdosing of unspecified antiepileptic and sedative-hypnotic drugs; Z79.899 Other long term (current) drug therapy
CPT/HCPCS: 80048; 83036; 84443; 85025